=== PATIENT | female | born 1955 | race Caucasian/White ===

== ENCOUNTER 2024-08-24 14:55 | Emergency (ER) | payer MEDICARE, BC, SELFPAY ==
[2024-08-24 14:59] VITALS: BP 199/103
[2024-08-24 15:49] LABS: Hematocrit 45.8 % (37.0-47.0); Hemoglobin 15.0 g/dL (12.0-16.0); Mean Corp Hgb Conc. 32.8 g/dL (33.0-37.0); Mean Corpuscular Volume 89.5 fL (81.0-99.0); Nucleated Red Blood Cells % 0 %; Platelet Count 272 10^3/uL (130-400); Red Cell Dist. Width 15.0 % (11.5-14.5)
[2024-08-24 16:03] LABS: ALT (SGPT) 10 U/L (0-35); AST (SGOT) 19 U/L (14-36); Albumin 4.6 g/dl (3.5-5.0); Alkaline Phosphatase 65 U/L (38-126); Blood Urea Nitrogen 14 mg/dl (7-17); Calcium 9.2 mg/dl (8.4-10.2); Carbon Dioxide 26 mmol/L (22-30); Chloride 109 mmol/L (98-107); Glucose 93 mg/dl (70-99); Potassium 4.2 mmol/L (3.5-5.1); Sodium 141 mmol/L (135-145); Total Protein 8.2 g/dl (6.3-8.2); eGFR > 60.00
[2024-08-24 16:20] LABS: Urine Character Clear (Clear)
--- NOTE | 2024-08-24 16:54 | ED.GENMED ---
History of Present Illness
General
Chief Complaint: Urinary Symptoms
Source: patient
Exam Limitations: none
Time Seen by Provider: 08/24/24 16:25
History of Present Illness
History of Present Illness:
69yoF with a history of hypertension, obesity, GERD, and recurrent UTIs over the past year presenting for evaluation of UTI symptoms. Patient was last seen by her PCP on 08/18/2024 for UTI symptoms. She was started on a 5-day course of Ceftin which
she completed today. She reports no improvement in her symptoms after the antibiotic. She continues to have urinary frequency, urgency, and is now experiencing decreased urination. She also reports some bloating in her abdomen and some low back
pain. No fevers or vomiting. Patient is concerned because she has a family history of kidney failure. A urine culture was sent on 08/18/24 which grew out 25,000-50,000 colonies of MRDO E.Coli. Culture showed resistance to cefoxitin, cefpodoxime,
and ceftriaxone.
Past History
Past History
ED Past Medical History: Arrthythmia (SVT), GERD, HTN, Hypercholesterolemia and Other (DVT left leg June 2018 after orthopedic/ankle surgical procedure.)
ED Past Surgical History: Bowel resection (Colon resection for Diverticulitis and Pre CA growth), Cardiac (Ablation), Gynecological (Hysterectomy and one ovary removed) and Orthopedic (ORIF Fibula,)
Social History
Tobacco: Former smoker
Alcohol: None
Drug: None
Personal:
Living: with family
Family History
Family History: Other
Phy Exam
General Physical Exam
General Presentation: well appearing and no apparent distress
General Skin: warm and dry
General Habitus: normal
General Mental: alert
ENT Exam
ENT Exam: normocephalic
Pulmonary Exam
Pulmonary Exam: no respiratory distress
Gastrointestinal Exam
Gastrointestinal Exam: non tender, soft, non distended, no cva tenderness and other (Abdomen obese. Soft, non-distended. Palpable umbilical hernia that is non-tender without skin changes. No rebound or guarding. No CVA tenderness.)
Neurological Exam
Neurological Exam: alert
[place] Coma Scale
Eye Opening: Spontaneous
Verbal Response: Oriented
Motor Response: Obeys Commands
GCS Total Score: 15
Skin Exam
Skin Exam: normal color and warm/dry
Psychiatric Exam
Psychiatric Exam: normal mood/affect
Course
Orders/Labs/Results
Orders:
Orders
08/24/24 15:23
Complete Blood Count/With Diff Urgent
Comprehensive Metabolic Panel Urgent
Lactic Acid Urgent
Urinalysis Reflex To Culture Urgent
Date Specimen was Collected: 08/24/24
Time Specimen was Collected: 15:07
Urine Microscopic Reflex Cult Urgent
Urine Culture Urgent
CAMPOS Source: U
Specimen Description:
Date Specimen was Collected: 08/24/24
Time Specimen was Collected: 15:07
08/24/24 16:53
CT Abd/pelvis W Iv Cont Urgent
Comment:
Reason For Exam: lower abd pain, UTI symptoms
Bladder Scan- Treatment ONCE
0.9% Sodium Chloride 1000 ml [Nss] 1,000 ml IV BOLUS
Abnormal Lab Results
08/24/24
15:23
MCHC 32.8 L g/dL
(33.0-37.0)
RDW 15.0 H %
(11.5-14.5)
MPV 10.6 H fL
(7.4-10.4)
Chloride 109 H mmol/L
(98-107)
Ur Occult Blood Reflex 1+ A
(Negative)
Leukocyte Esterase Rfl 1+ A
(Negative)
Urine Bacteria (Reflex) Few A
(Negative)
Urine Albumin (Reflex) 2+ A
(Neg - Trace)
08/24/24 15:23
08/24/24 15:23
Vital Signs
Initial and Last Documented VS:
Initial Vital Signs
Temp Pulse Resp BP Pulse Ox
97.8 F 58 20 199/103 96
08/24/24 14:59 08/24/24 14:59 08/24/24 14:59 08/24/24 14:59 08/24/24 14:59
Last Documented Vital Signs
Temp Pulse Resp BP Pulse Ox
97.8 F 46 14 164/96 97
08/24/24 14:59 08/24/24 17:38 08/24/24 17:38 08/24/24 17:38 08/24/24 17:38
MDM/Problems Addressed
Differential Diagnosis Includes:
69yoF here with UTI symptoms. Just finished a 5 day course of Ceftin without improvement. Outpatient urine culture reviewed on patient's phone which grew out E.coli resistant to 2nd/3rd gen cephalosporins. Denies vomiting or fevers. She is
hypertensive with otherwise stable vitals. No CVA tenderness on exam. Differential diagnosis includes but is not limited to: UTI, pyelonephritis, urinary retention
Initial ED plan: Workup intiated in triage. White count, lactate, and renal function WNL. UA pending. Will check bladder scan and CT abdomen. IV fluid bolus.
*Pulse Oximetry
SaO2: 96
Oxygen Mode of Delivery: Room air
Patient hypoxic: no (96%)
*Critical Care Note
Total Time (30-74mins, 75-104mins- exclusive of procedures): Not Applicable
Update Note
Update Note:
Bladder scan 188cc, no indication for Chester catheter. UA with 1+ leukocytes and few bacteria. >30/LPF squamous epithelial cells present suggesting contaminated sample. CT shows a fat-containing ventral hernia with mild stranding although there is no
tenderness when hernia is palpated as well as no skin changes. Lung nodule noted that appears increased in size compared to prior CT in 2019. Patient informed of this and copy of the radiology report was provided. She has a remote smoking history
and was advised to f/u with her PCP regarding this. No imaging evidence of hydronephrosis or pyelonephritis. No indication for hospitalization. Urinalysis is not overtly concerning for infection although she continues to be symptomatic. Will
prescribe Macrobid which prior urine culture showed susceptibility to. Will refer to urology for recurrent UTIs. ED return precautions reviewed and patient discharged in stable condition.
ED Attending Note
-
Portions of this chart may have been created with voice recognition software.� Occasional wrong word or��sound alike� substitutions may have occurred due to the inherent limitations of voice recognition software.
Discharge Plan
Departure
Patient Disposition: Home (Routine Discharge)
Date of Disposition: 08/24/24
Time of Disposition: 19:03
Patient with high blood pressure during this ER visit?: Yes
Discharge Problem:
Urinary tract infection, Incidental lung nodule, greater than or equal to 8mm
Instructions: Urinary Tract Infection, Adult (DC)
Prescriptions:
New
nitrofurantoin monohyd/m-cryst [Macrobid] 100 mg capsule
100 mg PO Q12H 5 Days Qty: 10 0RF
No Action
omeprazole 40 MG capsule,delayed release(DR/EC)
40 mg PO DAILY Qty: 30 0RF
carvedilol 25 mg tablet
25 mg PO BID
hydrochlorothiazide 12.5 mg tablet
12.5 mg PO DAILY
hydralazine 50 mg tablet
50 mg PO TID
amlodipine 5 mg Tablet
5 mg PO BID Qty: 60 0RF
spironolactone 25 mg Tablet
12.5 mg PO DAILY Qty: 60 0RF
Referrals:
Jimy Morris MD [Active, Urology]
UNKNOWN - PT DOES,NOT KNOW [Unknown Provider]
Activity Restrictions/Additional Instructions:
Take antibiotics as prescribed. Drink plenty of fluids. Take probiotics or eat yogurt while on the antibiotic.
Please follow-up with urology. You should also follow-up with your family doctor regarding the lung nodule seen on today's CT scan.
Return to the ER with any worsening symptoms including fevers, vomiting, or flank pain.
Interventions
Interventions:
*Risk Screen - Suicide Last Done: 08/24/24 17:12
*General Assessment Last Done: 08/24/24 17:10
*Neglect/Abuse Screening Last Done: 08/24/24 17:12
*ED- Fall Risk Assessment Last Done: 08/24/24 17:10
*ED COVID-19 Vaccine History Last Done: 08/24/24 17:10
ED-Female Genitourinary Assessment Last Done: 08/24/24 17:30
Discharge Date and Time
Print Language: SLOVENIAN
[2024-08-24 17:10] VITALS: BMI 39.3
[2024-08-24 17:38] VITALS: BP 164/96
--- NOTE | 2024-08-24 17:41 | EDRN ---
Pt states she has pain in her bladder area, across lower abd and in her urethra at 7/10. Pt states she has needed to void frequently and only void small amnts like a tbspn.
[2024-08-24] MEDS: NSS 1000 IV (18:20)
[2024-08-24 18:26] LABS: Urine Red Blood Cell 0-2 /HPF (0-2); Urine Squamous Cell >30 /LPF (Few)
== END 2024-08-24 19:23 | disposition home or self-care (01) ==
LOC: EMR 14:55
PROVIDERS: Emergency Medicine; EMERGENCY PHYSICIAN Emergency Medicine; FAMILY PHYSICIAN Family Medicine
DX: N39.0 Urinary tract infection, site not specified (principal); R10.30 Lower abdominal pain, unspecified; R91.1 Solitary pulmonary nodule; E66.9 Obesity, unspecified; K43.9 Ventral hernia without obstruction or gangrene; K21.9 Gastro-esophageal reflux disease without esophagitis; E78.00 Pure hypercholesterolemia, unspecified; I10 Essential (primary) hypertension; I47.10 Supraventricular tachycardia, unspecified; K57.92 Diverticulitis of intestine, part unspecified, without perforation or abscess without bleeding; Z87.440 Personal history of urinary (tract) infections; Z86.718 Personal history of other venous thrombosis and embolism; Z87.891 Personal history of nicotine dependence; Z98.0 Intestinal bypass and anastomosis status; Z88.6 Allergy status to analgesic agent; Z91.040 Latex allergy status; Z88.5 Allergy status to narcotic agent; Z88.2 Allergy status to sulfonamides; Z91.048 Other nonmedicinal substance allergy status
CPT/HCPCS: 99285; 51798; 96360; 74177; 80053; 81003; 81015; 83605; 85025; 87086; Q9967

== ENCOUNTER 2024-09-15 19:40 | Emergency (ER) | payer MEDICARE, BC, SELFPAY ==
[2024-09-15 19:45] VITALS: BP 213/108
[2024-09-15 20:27] LABS: ALT (SGPT) < 10 U/L (0-35); AST (SGOT) 17 U/L (14-36); Albumin 4.1 g/dl (3.5-5.0); Alkaline Phosphatase 57 U/L (38-126); Blood Urea Nitrogen 15 mg/dl (7-17); Calcium 9.2 mg/dl (8.4-10.2); Carbon Dioxide 23 mmol/L (22-30); Chloride 111 mmol/L (98-107); Glucose 119 mg/dl (70-99); Potassium 3.8 mmol/L (3.5-5.1); Sodium 140 mmol/L (135-145); Total Protein 7.3 g/dl (6.3-8.2); eGFR > 60.00
[2024-09-15 20:37] VITALS: BMI 40.6
[2024-09-15 20:46] VITALS: BP 187/91
[2024-09-15 21:07] LABS: Hematocrit 42.8 % (37.0-47.0); Hemoglobin 14.1 g/dL (12.0-16.0); Mean Corp Hgb Conc. 32.9 g/dL (33.0-37.0); Mean Corpuscular Volume 87.7 fL (81.0-99.0); Nucleated Red Blood Cells % 0 %; Platelet Count 198 10^3/uL (130-400); Red Cell Dist. Width 15.3 % (11.5-14.5)
[2024-09-15 21:29] VITALS: BP 176/82
[2024-09-15] MEDS: TYLENOL 650 MG PO (21:52)
[2024-09-15] MEDS: APRESOLINE 10 MG IV (21:53)
[2024-09-15 22:34] VITALS: BP 160/86
[2024-09-15 23:00] VITALS: BP 171/88
--- NOTE | 2024-09-15 23:16 | ED.GENMED ---
History of Present Illness
General
Chief Complaint: Blood Pressure Problem
Source: patient and records
Exam Limitations: none
Time Seen by Provider: 09/15/24 21:45
Nursing documentation reviewed up to this point in time: agreed with
History of Present Illness
History of Present Illness:
69-year-old female with a past medical history as noted presents to the ER for evaluation of hypertension. Patient reports that she has a history of difficulty control blood pressure particular in the past few months. Her current blood pressure
medication regiment includes: Carvedilol 25 mg p.o. twice daily, valsartan 80 mg p.o. daily. She has been prescribed amlodipine 5 mg and her resident care coordinator recommended that she take this on an as-needed basis if her blood pressures are running high.
She previously had been on hydralazine standing 25 mg daily but this was discontinued due to issues with low blood pressure and dizziness.
She presents to the ED today for high blood pressure�she says that over the past 48 hours blood pressures have been running quite high she says with readings over 200 at home. She says that today she took the amlodipine in the morning in addition
to her normal dose of carvedilol. Rechecked her blood pressure later and it was still high and she started to notice she was having heaviness in her chest, mild shortness of breath as well as some headache and decided she should come to the ER to
be evaluated. Symptoms resolved shortly after arrival in the emergency room. She denies any other acute complaints. She is scheduled to see her resident care coordinator in 2 weeks ([address] Swanson) for routine follow-up. She does note that she has been under
some increased stress recently, has been dealing with urinary symptoms and UTIs recently finished a course of Macrobid. She is following with urology for this issue.
Past History
Past History
ED Past Medical History: Arrthythmia (SVT), GERD, HTN, Hypercholesterolemia and Other (DVT left leg June 2018 after orthopedic/ankle surgical procedure.)
ED Past Surgical History: Bowel resection (Colon resection for Diverticulitis and Pre CA growth), Cardiac (Ablation), Gynecological (Hysterectomy and one ovary removed) and Orthopedic (ORIF Fibula,)
Social History
Tobacco: Former smoker
Alcohol: None
Drug: None
Personal:
Living: with family
Family History
Family History: Other
Review of Systems
Review of Systems
All Other Systems: ROS reviewed and negative except as documented in HPI and ROS
Respiratory: Denies trouble breathing
Cardiac: Reports chest pain
ABD/GI: Denies abdominal pain, nausea or vomiting
: Denies flank pain
Musculoskeletal: Denies neck pain or back pain
Neurological: Reports dizzy and headache
Phy Exam
Physical Exam
Physical Exam:
General: Awake, alert, oriented x3; no acute distress
Head: Normocephalic, atraumatic
Eyes: Conjunctiva normal, EOMI, pupils equal round reactive to light bilaterally
Throat: Airway intact, handling secretions
Neck: Trachea midline, supple without meningismus
Lungs: Clear to auscultation bilaterally, no wheezing, rales, rhonchi
Heart: Regular rate and rhythm, no murmurs, gallops, or rubs
Abd: Soft, non distended, nontender
Neuro: Cranial nerves grossly intact, speech fluid, no gross motor or sensory deficits
Extremities: No edema in extremities, equal pulses in all extremities
Scores
Heart Failure Risk
Heart Failure Risk Score: Not Applicable
Heart Score for Chest Pain Patients
STEMI patient?: Not applicable
Withdrawal Assessment of Alcohol
Withdrawal Assessment Completed?: Not applicable
Course
Orders/Labs/Results
Orders:
Orders
09/15/24 19:43
EKG [Electrocardiogram (*1)] Urgent
Reason for Study: Shortness of Breath
EKG- Treatment ONCE
Chest [CR Chest - 2 Views ] Urgent
Comment:
Reason For Exam: SOB
09/15/24 19:56
CMP [Comprehensive Metabolic Panel] Urgent
Pro-BNP [NT-proBNP] Urgent
09/15/24 20:54
Complete Blood Count/With Diff Urgent
09/15/24 21:47
Add On- LAB Urgent
Tests Added?: troponin
09/15/24 21:48
Acetaminophen [Tylenol] 650 mg PO NOW STA
HydrALAZINE [Apresoline] 10 mg IV NOW STA
09/15/24 22:52
Troponin I Urgent
Abnormal Lab Results
09/15/24 09/15/24
19:56 20:54
MCHC 32.9 L g/dL
(33.0-37.0)
RDW 15.3 H %
(11.5-14.5)
Chloride 111 H mmol/L
(98-107)
Glucose 119 H mg/dl
(70-99)
09/15/24 20:54
09/15/24 19:56
Vital Signs
Initial and Last Documented VS:
Initial Vital Signs
Temp Pulse Resp BP Pulse Ox
36.8 C 54 19 213/108 97
09/15/24 19:45 09/15/24 19:45 09/15/24 19:45 09/15/24 19:45 09/15/24 19:45
Last Documented Vital Signs
Temp Pulse Resp BP Pulse Ox
36.8 C 54 15 160/86 97
09/15/24 19:45 09/15/24 22:34 09/15/24 22:34 09/15/24 22:34 09/15/24 23:24
MDM/Problems Addressed
Differential Diagnosis Includes:
Hypertension
MDM/Problems Addressed:
69-year-old female presents for evaluation of hypertension uncontrolled over the past few days. She did have some transient chest pain/headache today which has resolved. Blood pressure was 213/108 on arrival. Improved but still markedly elevated
by my assessment. EKG shows no STEMI. Labs sent off including a CBC and a CMP which showed no clinically significant abnormalities. Troponin undetectable. Chest x-ray shows no acute disease. She was given a dose of IV hydralazine here with
improvement in blood pressure. Had a long discussion with the patient about treatment options. Will plan to restart amlodipine as a standing dose and reinstate use of hydralazine on an as-needed basis. Going forward her regiment will be to take
carvedilol twice daily, amlodipine once daily, valsartan once daily; hydralazine to be used daily as needed. She will follow-up with her resident care coordinator and keep a diary of her blood pressures in the meantime. Return with any concerning symptoms.
She feels very comfortable to this plan. All questions answered.
Chronic conditions affecting care:
Hypertension
Acute Exacerbation and/or Progression of Chronic Illness:
Acutely hypertensive
Acute Exacerbation and/or Progression of Chronic Illness: HTN
*Radiology
Radiology exam reviewed: preliminary read by ED provider and radiology read reviewed
*Pulse Oximetry
SaO2: 97
Oxygen Mode of Delivery: Room air
Patient hypoxic: no (97%)
*EKG
Interpreted by ED Provider?: Yes
Comparison EKG: no changes
Heart Rate: 58
Rate: bradycardiac
Rhythm: sinus
[place]: normal axis
Interval: normal interval
QRS Pattern: normal QRS
Ischemia: no ischemia
*Critical Care Note
Total Time (30-74mins, 75-104mins- exclusive of procedures): Not Applicable
Data Reviewed
Review of Other/Old Records Reveals: Labs and Records
Source: patient, records and family
ED Attending Note
-
Portions of this chart may have been created with voice recognition software.� Occasional wrong word or��sound alike� substitutions may have occurred due to the inherent limitations of voice recognition software.
Discharge Plan
Departure
Patient Disposition: Home (Routine Discharge)
Date of Disposition: 09/15/24
Time of Disposition: 23:24
Patient with high blood pressure during this ER visit?: Yes
Discharge Problem:
Hypertension, Chest pain
Instructions: High Blood Pressure (DC), Chest pain
Prescriptions:
No Action
omeprazole 40 MG capsule,delayed release(DR/EC)
40 mg PO DAILY Qty: 30 0RF
carvedilol 25 mg tablet
25 mg PO BID
hydrochlorothiazide 12.5 mg tablet
12.5 mg PO DAILY
Patient Comments:
Pt states med on hold per MD at this time
hydralazine 50 mg tablet
50 mg PO TID
Patient Comments:
Pt states med on hold per MD at this time
topiramate 25 mg Tablet
25 mg PO DAILY
fexofenadine [[place]be Allergy] 180 mg Tablet
180 mg PO DAILY
amlodipine 5 mg tablet
5 mg PO DAILY PRN (Reason: Blood pressure)
spironolactone 25 mg tablet
12.5 mg PO Q48H
Referrals:
Jonathan Swanson MD [Non-Admitting Privileges, Cardiology] - Keep scheduled appt
Earl Wen MD [Family Provider, Family Practice]
Activity Restrictions/Additional Instructions:
Thank you for visiting the Emergency Department at [facility].
1. Please schedule a follow up appointment as directed. Call first thing tomorrow morning to make an appointment.
2. If indicated, please take your medications as instructed and indicated on discharge paperwork.
3. If any of your symptoms do not improve, or persist, or become more severe within 6-12 hours, please return to the emergency department for further care.
4. Please return to the emergency department if you develop a headache, neck pain/stiffness, fever greater than 100.4F, chest pain, shortness of breath, persistent nausea, vomiting, slurred speech, difficulty walking, numbness/tingling, weakness,
signs of infection or any other symptoms that are worrisome to you.
Please call [phone] if you have any questions.
Interventions
Interventions:
*Risk Screen - Suicide Last Done: 09/15/24 19:45
*General Assessment Last Done: 09/15/24 19:45
*Neglect/Abuse Screening Last Done: 09/15/24 19:45
*ED- Fall Risk Assessment Last Done: 09/15/24 20:37
*ED COVID-19 Vaccine History Last Done: 09/15/24 20:37
ED- Cardiac Assessment Last Done: 09/15/24 20:46
ED- Neurological Assessment Last Done: 09/15/24 20:46
ED- Pulmonary Assessment Last Done: 09/15/24 20:46
Discharge Date and Time
Print Language: COMORAN
[2024-09-15 23:21] LABS: Troponin I < 0.012 ng/ml
[2024-09-15 23:42] VITALS: BP 165/77
== END 2024-09-16 00:06 | disposition home or self-care (01) ==
LOC: EMR 19:40
PROVIDERS: Emergency Medicine; EMERGENCY PHYSICIAN Emergency Medicine; FAMILY PHYSICIAN Family Medicine
DX: I10 Essential (primary) hypertension (principal); R07.89 Other chest pain; R42 Dizziness and giddiness; R06.02 Shortness of breath; R51.9 Headache, unspecified; Z73.3 Stress, not elsewhere classified; K21.9 Gastro-esophageal reflux disease without esophagitis; E78.00 Pure hypercholesterolemia, unspecified; I47.10 Supraventricular tachycardia, unspecified; M19.90 Unspecified osteoarthritis, unspecified site; Z79.899 Other long term (current) drug therapy; Z86.718 Personal history of other venous thrombosis and embolism; Z87.891 Personal history of nicotine dependence; Z98.0 Intestinal bypass and anastomosis status; Z88.6 Allergy status to analgesic agent; Z91.040 Latex allergy status; Z88.5 Allergy status to narcotic agent; Z88.2 Allergy status to sulfonamides; Z91.048 Other nonmedicinal substance allergy status
CPT/HCPCS: 99285; 96374; 71046; 80053; 83880; 84484; 85025; 93005

== ENCOUNTER → 2024-11-25 07:54 | Outpatient (REF) | payer MEDICARE, BC, SELFPAY | LOC: HWRAD 07:54 | PROVIDERS: ATTENDING PHYSICIAN Internal Medicine Critical Care Medicine; FAMILY PHYSICIAN Family Medicine | DX: R91.1 Solitary pulmonary nodule (principal) | CPT/HCPCS: 71250 ==

== ENCOUNTER 2024-12-12 19:26 | Inpatient (IN) | payer MEDICARE, BC, SELFPAY ==
[2024-12-12] VITALS (9 sets, daily range): BP systolic 135–211; BP diastolic 74–114; BMI 39.2
[2024-12-12 15:56] LABS: Hematocrit 44.8 % (37.0-47.0); Hemoglobin 14.6 g/dL (12.0-16.0); Mean Corp Hgb Conc. 32.6 g/dL (33.0-37.0); Mean Corpuscular Volume 90.0 fL (81.0-99.0); Nucleated Red Blood Cells % 0 %; Platelet Count 272 10^3/uL (130-400); Red Cell Dist. Width 15.3 % (11.5-14.5)
--- NOTE | 2024-12-12 15:58 | ED.CVA ---
History of Present Illness
<Tyra Armenta MD, Resident - Last Filed: 12/13/24 01:11 EDT>
General
Chief Complaint: CVA/TIA Symptoms
Source: patient
Time Seen by Provider: 12/12/24 15:08
Onset of Stroke Symptoms
Onset of symptoms known: Yes
Date of onset of symptoms: 12/12/24
Time of onset of symptoms: 09:00
Time pt last seen normal is known: No
History of Present Illness
History of Present Illness:
69-year-old female with past medical history of known ocular migraines, pulmonary nodules, HTN, non-obstructive CAD, provoked DVT presents to the ER for headache for the last 3 weeks with new onset expressive aphasia this morning. She has had
ocular migraines for the past 3 weeks associated with occasional blurry vision, floaters, flashing lights. She has been stressed and attributes it to that. 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
could not express herself. She knew what she wanted to say but was unable to say the correct words. When she was trying to write something down, she knew what she wanted to write but she wrote down the wrong thing. She did not think much of it
and continued on her day.
At around 10:30 she went to the bank where she noted she was unable to express herself with the staff there either. They told her she should go see a doctor. She went to [facility] urgent care and they recommended for her to come to the ER. At the
urgent care, she was starting to be able to express herself better. By the time she got to the ER, her speech returned to normal and only the ongoing headache with visual changes remained. She is not on any blood thinners or anti-platelets. She did
take her BP medication this morning. She denies any facial droop, weakness, numbness or tingling. She does endorse some nausea when she moves her eyes too quickly and feels like there is pressure behind her ears. Her sister does have a history of
multiple brain aneurysms requiring multiple surgeries.
Of note, she is getting worked up for pulmonary nodules with Dr. Em and she stated she is planning on seeing him this saturday to discuss an enlarging one seen on recent imaging.
Past History
<Tyra Armenta MD, Resident - Last Filed: 12/13/24 01:11 EDT>
Past History
ED Past Medical History: Arrthythmia (SVT), GERD, HTN, Hypercholesterolemia, Other (DVT left leg June 2018 after orthopedic/ankle surgical procedure.), Other (Pulmonary nodules) and Other (CAD)
ED Past Surgical History: Bowel resection (Colon resection for Diverticulitis and Pre CA growth), Cardiac (Ablation), Gynecological (Hysterectomy and one ovary removed) and Orthopedic (ORIF Fibula,)
Social History
Tobacco: Former smoker (Quite 20 years ago. Started age 19 1/2 pack per day. )
Alcohol: None
Drug: None
Personal:
Living: with family
Employment: Employed
Family History
Family History: Other (Sister brain aneurysms )
Review of Systems
<Tyra Armenta MD, Resident - Last Filed: 12/13/24 01:11 EDT>
Review of Systems
Allergies reviewed?: Yes
Constitutional: Reports no symptoms
EENT: Reports no symptoms
Respiratory: Reports no symptoms
Cardiac: Reports no symptoms
ABD/GI: Reports nausea
: Reports no symptoms
Musculoskeletal: Reports neck pain
Neurological: Reports headache
Endocrine: Reports no symptoms
Phy Exam
<Tyra Armenta MD, Resident - Last Filed: 12/13/24 01:11 EDT>
Physical Exam
Physical Exam:
General: Well appearing
Head: Atraumatic
Neck: supple, non-tender
Eyes: PERRLA
Cardiac: Regular S1, S2, no murmurs
Respiratory: Clear breath sounds bilaterally
Abdomen: non-tender, non-distended, normal BSx4, Soft
Neurological: CNII-XII intact, NIH 0, Left eye noted to have some central loss of vision. When reading sentences, unable to see a few words in between other words.
Extremities: No peripheral edema
Psych: calm
NIH Stroke Score
Level of Consciousness: 0 - Alert
LOC questions: 0-Answers both correctly
LOC Commands: 0-Performs both correctly
Best Gaze: 0-Normal
Visual Jones: 0=Normal, no visual loss
Facial palsy: 0=Normal, symmetrical
Motor - Right Arm: 0=No drift 10 seconds
Motor - Left Arm: 0=No drift 10 seconds
Motor - Right Le-No drift 5 seconds
Motor - Left Le-No drift 5 seconds
Limb Ataxia: 0-Absent
Sensation: 0-Normal
Best Language: 0-No aphasia
Dysarthria: 0-Normal
Extinction and Inattention: 0-No abnormality
Total Score:: 0
<Hernandez Clay, DO - Last Filed: 12/12/24 16:29>
NIH Stroke Score
Total Score:: 0
Course
<Tyra Armenta MD, Resident - Last Filed: 12/13/24 01:11 EDT>
Orders/Labs/Results
Orders:
Orders
12/12/24 Dinner
Regular
At Your Request: Full Participation
Does patient need a safe tray?: No
12/12/24 15:10
Electrocardiogram (*1) Stat
Reason for Study: Other
Other Reason for Exam: neuro symptoms
CT Head & Neck Angio W/wo IV Urgent
Comment:
Reason For Exam: aphasia, headache, visual change
CT Head W/o Iv Contrast Urgent
Comment:
Reason For Exam: aphasia, headache, visual change
Bedside Glucose- Treatment ONCE
Cardiac Monitoring- Treatment ONCE
EKG- Treatment ONCE
Pulse Ox/cont/shift [RESP] Stat
Quantity: 1
12/12/24 15:37
Basic Metabolic Panel Urgent
Complete Blood Count/With Diff Urgent
NT-proBNP Urgent
Comment: ADD ON
PTT Urgent
Prothrombin Time Urgent
Troponin I Urgent
12/12/24 15:50
CT Brain Perfusion Urgent
Comment:
Reason For Exam: aphasia
12/12/24 18:35
Aspirin 325 mg PO NOW STA
12/12/24 18:57
Acetaminophen [Tylenol] 1,000 mg PO NOW STA
12/12/24 19:10
Admit/Transfer Patient As Directed
Co-Sign Provider:
Level of Care: Inpatient admission
Assign to:: Telemetry
Physician / Group: radha
Diagnosis: ocular migraine
Reason for Telemetry: Arrhythmia
Date to Stop Telemetry: 12/15/24
Time to Stop Telemetry: 11:00
Reason for Hospitalization: ocular migraine
Expected length of stay greater than two midnights?: Yes
ELOS- Estimated Length of Stay in days: 2
I certify the patient meets the requirements for IP care: Yes
Code Status As Directed
Resuscitation Status: Full Code
PRN Pain Medication Management As Directed
May give lesser potent ordered pain med per pt: Yes
preference::
Protocol:: Medication orders for pain may be administered in a
manner that supports deferring to patient preference
when the pt is:
- Requesting an ordered lesser potent pain medication.
Least to most potent pain medications are defined
as: acetaminophen < NSAID < tramadol < opioids
(morphine, oxycodone, hydromorphone).
- Requesting a lesser dose of the same medication IF
ORDERED.
- Requesting a less intrusive route of administration
if both routes are prescribed by the provider (PO <
IV).
12/12/24 19:12
Diphenhydramine [Benadryl] 25 mg IV NOW STA
Ketorolac [Toradol] 15 mg IV NOW STA
Ketorolac [Toradol] 15 mg IV Q6HPRN PRN
Prochlorperazine [Compazine] 10 mg IV Q6HPRN PRN
12/12/24 21:33
Carvedilol [Coreg] 25 mg PO BID
Spironolactone [Aldactone] 25 mg PO Q48H
topiramate 50 mg PO BID
12/12/24 21:33
MRI Brain [MR Brain Without Contrast] Routine
Comment:
Reason For Exam: expressive apahasia, migraine
Recent pill cam endoscopy?: No
Activity As Directed
Activity Level: As Tolerated
Pneumatic Compression Sleeves As Directed
Type: Knee high
Vital Signs As Directed
Frequency: Per unit guidelines
DX Deep Vein Thrombosis Video Routine
12/13/24 06:00
Complete Blood Count/With Diff IN AM
Comprehensive Metabolic Panel IN AM
12/13/24 08:00
Aspirin Low Dose EC [Aspir Low (Enteric Coated)] 81 mg PO DAILY
fexofenadine [Phoebe Allergy] 180 mg PO DAILY
omeprazole 40 mg PO DAILY
12/13/24 18:00
Escitalopram Oxalate [Lexapro] 10 mg PO QPM
Valsartan [Diovan] 80 mg PO QPM
12/15/24 11:00
DC Protocol for Telemetry ONCE
Abnormal Lab Results
12/12/24
15:37
MCHC 32.6 L g/dL
(33.0-37.0)
RDW 15.3 H %
(11.5-14.5)
MPV 10.7 H fL
(7.4-10.4)
Chloride 108 H mmol/L
(98-107)
12/12/24 15:37
12/12/24 15:37
Vital Signs
Initial and Last Documented VS:
Initial Vital Signs
Temp Pulse Resp BP Pulse Ox
98.4 F 59 16 211/102 98
12/12/24 14:11 12/12/24 14:11 12/12/24 14:11 12/12/24 14:11 12/12/24 14:11
Last Documented Vital Signs
Temp Pulse Resp BP Pulse Ox
97.7 F 49 18 135/83 97
12/12/24 23:00 12/12/24 23:00 12/12/24 23:00 12/12/24 23:00 12/12/24 23:00
<Hernandez Clay, DO - Last Filed: 12/12/24 16:29>
Orders/Labs/Results
Orders:
Orders
12/12/24 Dinner
Regular
At Your Request: Full Participation
Does patient need a safe tray?: No
12/12/24 15:10
Electrocardiogram (*1) Stat
Reason for Study: Other
Other Reason for Exam: neuro symptoms
CT Head & Neck Angio W/wo IV Urgent
Comment:
Reason For Exam: aphasia, headache, visual change
CT Head W/o Iv Contrast Urgent
Comment:
Reason For Exam: aphasia, headache, visual change
Bedside Glucose- Treatment ONCE
Cardiac Monitoring- Treatment ONCE
EKG- Treatment ONCE
Pulse Ox/cont/shift [RESP] Stat
Quantity: 1
12/12/24 15:37
Basic Metabolic Panel Urgent
Complete Blood Count/With Diff Urgent
NT-proBNP Urgent
Comment: ADD ON
PTT Urgent
Prothrombin Time Urgent
Troponin I Urgent
12/12/24 15:50
CT Brain Perfusion Urgent
Comment:
Reason For Exam: aphasia
12/12/24 18:35
Aspirin 325 mg PO NOW STA
12/12/24 18:57
Acetaminophen [Tylenol] 1,000 mg PO NOW STA
12/12/24 19:10
Admit/Transfer Patient As Directed
Co-Sign Provider:
Level of Care: Inpatient admission
Assign to:: Telemetry
Physician / Group: radha
Diagnosis: ocular migraine
Reason for Telemetry: Arrhythmia
Date to Stop Telemetry: 12/15/24
Time to Stop Telemetry: 11:00
Reason for Hospitalization: ocular migraine
Expected length of stay greater than two midnights?: Yes
ELOS- Estimated Length of Stay in days: 2
I certify the patient meets the requirements for IP care: Yes
Code Status As Directed
Resuscitation Status: Full Code
PRN Pain Medication Management As Directed
May give lesser potent ordered pain med per pt: Yes
preference::
Protocol:: Medication orders for pain may be administered in a
manner that supports deferring to patient preference
when the pt is:
- Requesting an ordered lesser potent pain medication.
Least to most potent pain medications are defined
as: acetaminophen < NSAID < tramadol < opioids
(morphine, oxycodone, hydromorphone).
- Requesting a lesser dose of the same medication IF
ORDERED.
- Requesting a less intrusive route of administration
if both routes are prescribed by the provider (PO <
IV).
12/12/24 19:12
Diphenhydramine [Benadryl] 25 mg IV NOW STA
Ketorolac [Toradol] 15 mg IV NOW STA
Ketorolac [Toradol] 15 mg IV Q6HPRN PRN
Prochlorperazine [Compazine] 10 mg IV Q6HPRN PRN
12/12/24 21:33
Carvedilol [Coreg] 25 mg PO BID
Spironolactone [Aldactone] 25 mg PO Q48H
topiramate 50 mg PO BID
12/12/24 21:33
MRI Brain [MR Brain Without Contrast] Routine
Comment:
Reason For Exam: expressive apahasia, migraine
Recent pill cam endoscopy?: No
Activity As Directed
Activity Level: As Tolerated
Pneumatic Compression Sleeves As Directed
Type: Knee high
Vital Signs As Directed
Frequency: Per unit guidelines
DX Deep Vein Thrombosis Video Routine
12/13/24 06:00
Complete Blood Count/With Diff IN AM
Comprehensive Metabolic Panel IN AM
12/13/24 08:00
Aspirin Low Dose EC [Aspir Low (Enteric Coated)] 81 mg PO DAILY
fexofenadine [Phoebe Allergy] 180 mg PO DAILY
omeprazole 40 mg PO DAILY
12/13/24 18:00
Escitalopram Oxalate [Lexapro] 10 mg PO QPM
Valsartan [Diovan] 80 mg PO QPM
12/15/24 11:00
DC Protocol for Telemetry ONCE
Abnormal Lab Results
12/12/24
15:37
MCHC 32.6 L g/dL
(33.0-37.0)
RDW 15.3 H %
(11.5-14.5)
MPV 10.7 H fL
(7.4-10.4)
Chloride 108 H mmol/L
(98-107)
12/12/24 15:37
12/12/24 15:37
Vital Signs
Initial and Last Documented VS:
Initial Vital Signs
Temp Pulse Resp BP Pulse Ox
98.4 F 59 16 211/102 98
12/12/24 14:11 12/12/24 14:11 12/12/24 14:11 12/12/24 14:11 12/12/24 14:11
Last Documented Vital Signs
Temp Pulse Resp BP Pulse Ox
97.7 F 49 18 135/83 97
12/12/24 23:00 12/12/24 23:00 12/12/24 23:00 12/12/24 23:00 12/12/24 23:00
<Tyra Armenta MD, Resident - Last Filed: 12/13/24 01:11 EDT>
MDM/Problems Addressed
Differential Diagnosis Includes:
CVA, TIA, ocular migraine, migraine, aneurysm, central venous sinus thrombosis, MS,
MDM/Problems Addressed:
CBC, CMP, CTA to evaluate for stroke. Will provide loading dose of aspirin and if no hemorrhages found. Outside of TNK window with symptoms first starting 9:00am. Will likely keep for observation overnight regardless given BP elevated 211/102.
Permissive HTN in setting of acute stroke.
Head CT revealed no intracranial bleed. She was provided loading dose of aspirin. Head CTA revealed an apparent small outpouching measuring approximately 2 mm along the mid extracranial right ICA which may resent a small aneurysm. In addition a 1
cm soft tissue nodule within the right parotid gland. Recommendation is for further imaging as differentials include parotid lymph node versus parotid neoplasm such as a pleomorphic adenoma. Patient was updated on results. Given sister has had
significant history with brain aneurysms, patient is concerned. She also plans to follow-up outpatient for parotid gland nodule.
Will admit for observation.
Chronic conditions affecting care: HTN
<Tyra Armenta MD, Resident - Last Filed: 12/13/24 01:11 EDT>
*Pulse Oximetry
SaO2: 98
Oxygen Mode of Delivery: Room air
Patient hypoxic: no
*Critical Care Note
Total Time (30-74mins, 75-104mins- exclusive of procedures): Not Applicable
Data Reviewed
Review of Other/Old Records Reveals: Labs (Prior creatinine 0.7 on 09/15/2024) and Radiology Studies (Chest CT 11/25/2024 revealed 0.85 cm right lower lobe pulmonary nodule stable send recent abdominal CT )
Source: patient and records
<Hernandez Clay DO - Last Filed: 12/12/24 16:29>
*EKG
Interpreted by ED Provider?: Yes (I independently viewed and interpreted twelve-lead EKG showing sinus bradycardia, rate 52, normal axis, normal intervals, this is a normal tracing other than right, similar to prior from 09/15/2024)
*[employer] Interpretation
Rate: normal (I independently viewed and interpreted rhythm strip showing sinus bradycardia, no ectopy)
ED Attending Note
<Tyra Armenta MD, Resident - Last Filed: 12/13/24 01:11 EDT>
-
Portions of this chart may have been created with voice recognition software.� Occasional wrong word or��sound alike� substitutions may have occurred due to the inherent limitations of voice recognition software.
<Hernandez Clay DO - Last Filed: 12/12/24 16:29>
ED Attending Note
Patient seen and examined by attending physician: Yes
I performed the substantive portion of visit, reviewed & personally made and approve the management plan that is documented in note by myself or JOYCE.: Yes
I performed a history and physical exam of patient and discussed management with resident, I reviewed resident's note and agree with documented findings and plan of care.: Yes
ED Attending Note:
61-year-old female presents to the ER for evaluation of visual disturbance with some word finding difficulty earlier today. Patient states that she has been struggling with ocular migraine with intermittent headache over the last several weeks.
She states that she frequently has a visual disturbance which she describes as white flashes in her left peripheral vision. This has been intermittent and ongoing over the last several days. Today while at work she was having a difficult time
conversing with a customer. She also was having difficulty writing what she was trying to say. She went to urgent care who referred her to the ER for further evaluation. She reports that she is feeling much improved. No recent change in her
medications, she is been taking all of her antihypertensives as prescribed. She does have a prior history of ocular migraines with a similar visual disturbance. She has never had any word finding difficulty. She denies headache at time of my
interview. Vital signs reviewed, patient is awake, alert, appears in no acute distress, mucous membranes moist, conjunctiva pink, no nystagmus, PERRL, EOMI, tongue is midline, no facial asymmetry noted, no dysdiadochokinesia, no ataxia, no pronator
drift, GCS is 15, heart regular rate and rhythm without murmurs or ectopy, no carotid bruits, lungs are clear to auscultation without wheezes rales or rhonchi, no peripheral edema, 2+ DP pulses present symmetric bilateral feet. NIH stroke scale is
0. She would not be a candidate for TNK based on resolution of her symptoms and presentation greater than 3 hours after onset. However, given her symptoms along with blood pressure elevation and age greater than 50, will obtain CT angio to assess
for possible stroke. CT perfusion also added given symptoms have been present for less than 24 hours.
Discharge Plan
Departure
Patient Disposition: Admit
Date of Disposition: 12/12/24
Time of Disposition: 18:53
Presentation/result/management discussed w/ accepting MD/DO: Hospitalist
Discharge Problem:
TIA (transient ischemic attack)
Interventions
Interventions:
*Risk Screen - Suicide Last Done: 12/12/24 21:40
*General Assessment Last Done: 12/12/24 14:11
*Neglect/Abuse Screening Last Done: 12/12/24 16:25
*ED- Fall Risk Assessment Last Done: 12/12/24 14:11
*ED COVID-19 Vaccine History Last Done: 12/12/24 21:40
*ED Influenza Vaccine History Last Done: 12/12/24 14:11
*Nursing Disposition Last Done: 12/12/24 21:06
ED- Pulmonary Assessment Last Done: 12/12/24 19:34
ED- Neurological Assessment Last Done: 12/12/24 19:24
ED- Cardiac Assessment Last Done: 12/12/24 19:34
ED Swallowing Screen Last Done: 12/12/24 16:24
Discharge Date and Time
Discharge Date/Time: 12/12/24 21:06
[2024-12-12 16:05] LABS: INR 1.05; PT 14.1 Sec (11.4-14.6)
[2024-12-12 16:06] LABS: APTT 26.7 Sec (23.4-35.0)
[2024-12-12 16:10] LABS: Blood Urea Nitrogen 17 mg/dl (7-17); Calcium 9.2 mg/dl (8.4-10.2); Carbon Dioxide 23 mmol/L (22-30); Chloride 108 mmol/L (98-107); Glucose 78 mg/dl (70-99); Sodium 137 mmol/L (135-145); eGFR > 60.00
[2024-12-12 16:21] LABS: Troponin I < 0.012 ng/ml
[2024-12-12] MEDS: ASPIRIN 325 MG PO (18:47)
--- NOTE | 2024-12-12 19:14 | HPS.HSE ---
Family Physician
-
Family Physician: Earl Wen MD
Chief Complaint
-
headache
History of Present Illness
69-year-old female past medical history of ocular migraines, pulmonary nodules, hypertension, nonobstructive CAD, provoked DVT, presenting for headache expressive aphasia. She presented with headache for the past 3 weeks with new onset of
expressive aphasia this morning. She has had constant ocular migraine for the past 3 weeks associate with occasional blurry vision, floaters, flashing lights, pain behind the eyes, sensitivity to light and nausea. She has been stressed and
attributed headaches to stress. She was on migraine medication years ago but does not remember what the medication was.
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 She knew what she wanted to say but could not say the correct words. While she was trying to write something down she knew what to write but wrote
the wrong thing. At 10:30 AM he went to the [employer] and was unable to express herself to the staff there. She was told to seek medical care. She went to urgent care and was told to come to the emergency room. In urgent care she was starting to
speak better. By time she got to emergency room her speech returned to normal and only has ongoing headache with visual changes. She does not take any blood thinners or antiplatelet medications. She did take her blood pressure medication this
morning.
Denies any facial droop, weakness, numbness or tingling. She does have some nausea when she moves her eyes too quickly and feels like there is pressure behind the eyes.
Her sister had history of multiple brain aneurysms requiring multiple surgeries.
She is getting worked up for material reclaimer with Dr. Samuel and she is planning to see him this Saturday to discuss enlarged pulmonary nodule.
She is a former smoker. She drinks alcohol occasionally.
Medical History
Past Medical History
Past Medical History: Reports Other (ocular migraines, pulmonary nodules, hypertension, nonobstructive CAD, provoked DVT,)
Past Surgical History: Reports Other (colectomy, hysterectomy, ankle surgery, hip replacement )
Social History
Tobacco: Former Smoker
Alcohol: Occasional
Drug: None
Family History
Family History: Not pertinent
Allergies / Home Medications
Allergies reflects when Allergies were last updated in [facility].
Home Medications with original date entered in [facility]
Allergy/Medication List:
Allergies
Allergy/AdvReac Type Severity Reaction Status Date / Time
adhesive Allergy Rash Verified 08/24/24 15:06
codeine Allergy Itching Verified 08/24/24 15:06
AND NAUSEA
hydromorphone (From Dilaudid) Allergy Anaphylaxis Verified 08/24/24 15:06
latex Allergy MOUTH Verified 08/24/24 15:06
SORES/swelling
Sulfa (Sulfonamide Allergy ITCHING Verified 08/24/24 15:06
Antibiotics) AND
SWELLING
OF EARS,
LIPS AND
FINGERS
tramadol Allergy cold sweats Verified 08/24/24 15:06
ACRYLIC Allergy swelling,it Uncoded 08/24/24 15:06
elliot
Home Medications
omeprazole 40 mg capsule,delayed release 40 mg PO DAILY ##30 11/27/16
carvedilol 25 mg tablet 25 mg PO BID Blood Pressure 10/07/22
fexofenadine 180 mg tablet (Phoebe Allergy) 180 mg PO DAILY 09/15/24
spironolactone 25 mg tablet 25 mg PO Q48H Blood pressure 09/15/24
acetaminophen 650 mg tablet,extended release 1,300 mg PO BID 12/12/24
aspirin 81 mg tablet,delayed release 81 mg PO DAILY 12/12/24
escitalopram oxalate 10 mg tablet 10 mg PO QPM 12/12/24
topiramate 50 mg tablet 50 mg PO BID 12/12/24
valsartan 80 mg tablet 80 mg PO QPM 12/12/24
Review of Systems
-
History Source: Patient
A 12 point ROS was completed and negative except as noted: Yes
Constitutional: Reports No Symptoms
EENT: Reports No Symptoms
Respiratory: Reports No Symptoms
Cardiac: Reports No Symptoms
Abdomen/GI: Reports No Symptoms
: Reports No Symptoms
Musculoskeletal: Reports No Symptoms
Skin: Reports No Symptoms
Neurological: Reports See HPI
Endocrine: Reports No Symptoms
Hematologic/Lymphatic: Reports No Symptoms
Psych: Reports No Symptoms
Physical Exam
Vital Signs
Vital Signs
Temp Pulse Resp BP Pulse Ox
98.4 F 51 15 183/74 98
12/12/24 14:11 12/12/24 18:15 12/12/24 18:15 12/12/24 18:00 12/12/24 18:15
Physical Exam
General: Well Developed, Well Nourished and No Apparent Distress
HEENT: NormoCephalic, Moist mucous membranes and Atraumatic
Respiratory: Clear
Cardiac: S1/S2 and Regular Rhythm; No Murmur or Rub
GI: Soft, Non Tender, Non Distended and Normal Bowel Sounds; No Organomegaly
Rectal: Deferred by Provider
Musculoskeletal: No Clubbing, No Cyanosis and No Edema
Skin: No Rash
Neuro: Nonfocal/grossly intact
Laboratory Results
-
12/12/24 15:37
12/12/24 15:37
Laboratory Results
PT 14.1 Sec (11.4-14.6) 12/12/24 15:37
INR 1.05 12/12/24 15:37
APTT 26.7 Sec (23.4-35.0) 12/12/24 15:37
Total Bilirubin Cancelled 12/12/24 15:37
AST Cancelled 12/12/24 15:37
ALT Cancelled 12/12/24 15:37
Alkaline Phosphatase Cancelled 12/12/24 15:37
Troponin I < 0.012 ng/ml 12/12/24 15:37
Data Reviewed
-
Lab Data: Labs Reviewed by me
Old Records: Reviewed
Impression/Plan
-
IMPRESSION:
PLAN:
# Expressive aphasia secondary to ocular migraine versus rule out CVA
# History of ocular migraines
-No neurological symptoms currently
- CT head showed no acute intracranial abnormality
- CTA head and neck shows small outpouching measuring 2 mm along the mid extracranial right ICA which may represent small aneurysm, atherosclerotic calcification of the right carotid bifurcation 30% stenosis
-Tylenol, Toradol, Benadryl, Compazine for migraine
-Check MRI brain
- Continue aspirin
- Neurology consulted
Essential hypertension
- Continue Coreg, spironolactone, valsartan
Nonobstructive CAD
History of provoked DVT from left ankle surgery and cast
- No longer on blood thinner
Rheumatoid arthritis
Pulmonary nodules
Anxiety/depression
- Continue Lexapro
GERD
- Continue omeprazole
History of abnormal uterine bleeding status post hysterectomy
History of dysplastic colon polyp status post colectomy
Obesity
- Continue Topamax for weight loss
Full code
DVT prophylaxis�SCDs
Regular diet
[2024-12-12] MEDS: TORADOL 15 MG IV (19:28)
[2024-12-12] MEDS: TYLENOL 1000 MG PO (19:28)
[2024-12-12] MEDS: BENADRYL 25 MG IV (19:31)
--- NOTE | 2024-12-12 19:36 | EDRN ---
Pt has had a frontal headache x 4 weeks associated with intermittent white flashes in the corner of her L eye. Pt says she was at work today and was unable to speak properly and when she had to write down numbers/letters someone read to her, she
wrote down the wrote numbers/letters. Pt knew what she wanted to say and write but it did not come out properly. Slight photophobia, nausea. Pt denies cp, sob, abd pain, vomiting, weakness, dizziness.
[2024-12-12] MEDS: ALDACTONE 25 MG PO (22:02)
[2024-12-12] MEDS: TOPAMAX 50 MG PO (22:03)
[2024-12-12] MEDS: COREG 25 MG PO (22:03)
[2024-12-13 03:00] VITALS: BP 180/79
[2024-12-13 07:20] VITALS: BP 161/100
--- NOTE | 2024-12-13 07:38 | W.PN.HOSP.TC ---
Today's Communication/Plan
-
MRI brain WITH contrast ordered
Resume Coreg tonight, if BP still high 1-2 hours after Coreg given, can try resuming Valsartan
Monitor on telemetry
Plavix+Aspirin
Assessment / Plan
Assessment / Plan
Physical Exam
General: Well Developed, Well Nourished and No Apparent Distress
HEENT: Normocephalic, Moist mucous membranes and Atraumatic
Respiratory: Clear to Auscultation Bilaterally
Cardiac: S1/S2 and Regular Rhythm
GI: Soft, Non Tender, Non Distended and Normal Bowel Sounds
Musculoskeletal: No Cyanosis and No Edema
Skin: Warm. Dry.
Neuro: Nonfocal/grossly intact
Assessment/Plan
69-year-old female past medical history of ocular migraines, pulmonary nodules, hypertension, nonobstructive CAD, provoked DVT, presenting for headache expressive aphasia. She presented with headache for the past 3 weeks with new onset of
expressive aphasia this morning. She has had constant ocular migraine for the past 3 weeks associate with occasional blurry vision, floaters, flashing lights, pain behind the eyes, sensitivity to light and nausea. She has been stressed and
attributed headaches to stress. She was on migraine medication years ago but does not remember what the medication was. On 12/12/24 at 9 AM while talking to a customer she realized that she could not express herself. She knew what she wanted to
say but could not say the correct words. While she was trying to write something down she knew what to write but wrote the wrong thing. At 10:30 AM he went to the bank and was unable to express herself to the staff there. She was told to seek
medical care. She went to urgent care and was told to come to the emergency room. In urgent care she was starting to speak better. By time she got to emergency room her speech returned to normal and only has ongoing headache with visual changes.
She does not take any blood thinners or antiplatelet medications. She did take her blood pressure medications on 12/12/24 morning. She denied any facial droop, weakness, numbness or tingling. She was noted to have some nausea when she moves her eyes
too quickly and feels like there is pressure behind the eyes. Her sister had history of multiple brain aneurysms requiring multiple surgeries. 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
to discuss enlarged pulmonary nodule. She is a former smoker. She drinks alcohol occasionally.
# Expressive aphasia secondary to ocular migraine versus rule out CVA
# History of ocular migraines
- No neurological symptoms currently
- CT head showed no acute intracranial abnormality
- CTA head and neck shows small outpouching measuring 2 mm along the mid extracranial right ICA which may represent small aneurysm, atherosclerotic calcification of the right carotid bifurcation 30% stenosis
- Tylenol, Toradol, Benadryl, Compazine for migraine
- MRI brain with no stroke
- Continue aspirin
- Neurology consulted
- I communicated (via [place] [employer] communication on 12/13/24) with on-call neurologist Dr. Solo Ulloa and he said: 'May continue both aspirin and Plavix until she sees a Neurologist. Can normalize blood pressure.'
Pulmonary Nodules
New Parotid Gland Nodule
- Spoke with oncology and neurology, check MRI brain with contrast as well (ordered)
- Oncology consulted for evaluation of possible cancer
Essential hypertension
- Initially, antihypertensive medications were held for permissive hypertension, but I confirmed with neurologist on 12/13/24 evening, that antihypertensives can be resumed
- RESUME Coreg, spironolactone
- Resume Valsartan if BP remains high or does not drop too much after resuming Coreg this evening
Nonobstructive CAD
History of provoked DVT from left ankle surgery and cast
- No longer on blood thinner
Rheumatoid arthritis
Pulmonary nodules
Anxiety/depression
- Continue Lexapro
GERD
- Continue omeprazole
History of abnormal uterine bleeding status post hysterectomy
History of dysplastic colon polyp status post colectomy
Obesity
- Continue Topamax for weight loss
Full code
DVT prophylaxis�SCDs. Lovenox
Diet: Low sodium, cholesterol-lowering diet
Anticipated Discharge: 24 - 48 hours
Subjective/Interval History
-
Date of Service: December 13, 2024
Patient was seen and examined. Her initial, presenting symptoms had resolved.
Objective Data
-
Labs:
Laboratory Results
12/13/24
06:00
WBC Pending
Hgb Pending
Hct Pending
Plt Count Pending
Sodium Pending
Potassium Pending
Chloride Pending
Carbon Dioxide Pending
BUN Pending
Creatinine Pending
Glucose Pending
Calcium Pending
Total Bilirubin Pending
AST Pending
ALT Pending
Alkaline Phosphatase Pending
Vital Signs:
Vital Signs
Temp Pulse Resp BP Pulse Ox
97.5 F 50 20 180/79 97
12/13/24 03:00 12/13/24 03:00 12/13/24 03:00 12/13/24 03:00 12/13/24 03:00
[2024-12-13] MEDS: TORADOL 15 MG IV (08:10)
[2024-12-13] MEDS: CLARITIN 10 MG PO (08:11)
[2024-12-13] MEDS: PROTONIX 40 MG PO (08:11)
[2024-12-13] MEDS: TOPAMAX 50 MG PO ×2 (08:11→21:42)
[2024-12-13] MEDS: ASPIR LOW (ENTERIC COATED) 81 MG PO (08:11)
--- NOTE | 2024-12-13 08:24 | CON.NEURO4 ---
Consultation - Neurology 4
-
CONSULTING PHYSICIAN: Dr. Solo Ulloa
REFERRING PHYSICIAN: Dr. Eugene Diaz
DICTATED BY: Dr. Solo Ulloa
DATE/TIME OF REQUEST: 12/13/2024
DATE/TIME OF CONSULTATION: 12/13/2024
Reason for Consultation: Ocular migraine and speech difficulty.
ASSESSMENT AND PLAN:
The patient is a 69 years old female with a past medical history of ocular migraines and headache, who presented with headache and some difficulty with speech, and says that she had difficulty in getting the words out for about 15 minutes. It is
likely that the patient had a TIA. Also, the headache that the patient has is predominantly tension-type headache along with some symptoms of a migraine headache.
The patient has been under a lot of stress at work over the last 3 weeks as according the patient she has been working very hard and had a lot of responsibility at work, and 3 weeks ago was a time when her current headaches started. She
predominantly has a tension type of headache, which is daily headache, and is a pressure-like and bilateral headache, however she does have some symptoms of a migraine headache.
MRI of the brain does not show any acute intracranial abnormality.
The plan is to get MRI of the brain with contrast also.
The neurologic examination is normal.
Continue current medications including Lexapro and topiramate.
The patient given discharged if the MRI of the brain with contrast is normal and she will follow-up with neurology in the clinic in about 2 weeks.
I had a detailed discussion with the patient and her daughter and they verbalized understanding of our discussion.
Will sign off. Please call if you have any question.
History of Present Illness:
69-year-old female past medical history of ocular migraines, hypertension, who presented for evaluation of headache and expressive aphasia that lasted for about 15 minutes while she was at work. She presented with headache for the past 3 weeks with
new onset of expressive aphasia on the day of admission. She has had constant ocular migraine for the past 3 weeks associated with occasional blurry vision, floaters, flashing lights, pain behind the eyes, sensitivity to light and nausea. She has
been stressed and attributed headaches to stress. She was on migraine medication years ago but does not remember what the medication was.
At 9 AM on 12/12/2024, while talking to a customer she realized that she could not express herself. She knew what she wanted to say but could not say the correct words. While she was trying to write something down she knew what to write but wrote
the wrong thing. She went to urgent care and was told to come to the emergency room. In urgent care she was starting to speak better. By time she got to emergency room her speech returned to normal and only has ongoing headache with visual
changes. She does not take any blood thinners or antiplatelet medications. She did take her blood pressure medication this morning.
Review of Systems:
The patient denies dizziness, chest pain, shortness of breath, fever, chills, nausea and vomiting.
Neurologic Examination:
The patient is alert and oriented x 3,
Speech is clear,
The cranial nerves II to XII are grossly intact,
The motor strength is grossly 5/5 bilaterally,
The sensations are grossly intact,
The cerebellar examination showed does not show limb ataxia.
Vital Signs and Labs
-
Vital Signs and Labs:
Vital Signs
Temp Pulse Resp BP Pulse Ox
36.4 C 50 20 180/79 97
12/13/24 03:00 12/13/24 03:00 12/13/24 03:00 12/13/24 03:00 12/13/24 03:00
PT 14.1 Sec (11.4-14.6) 12/12/24 15:37
INR 1.05 12/12/24 15:37
APTT 26.7 Sec (23.4-35.0) 12/12/24 15:37
Sodium 137 mmol/L (135-145) 12/12/24 15:37
Potassium mmol/L (3.5-5.1) 12/12/24 15:37
BUN 17 mg/dl (7-17) 12/12/24 15:37
Glucose 78 mg/dl (70-99) 12/12/24 15:37
Calcium 9.2 mg/dl (8.4-10.2) 12/12/24 15:37
Bat-A-Hsifdxuzokz Pept 254 pg/ml 12/12/24 15:37
Medications
-
Active Medications
Generic Name Dose Route Start Last Admin
Trade Name Freq PRN Reason Stop Dose Admin
Aspirin 81 mg 12/13/24 08:00 12/13/24 08:11
Aspirin 81 Mg (Enteric Coated) Tablet PO 01/10/25 07:59 81 mg
DAILY RONEN Administration
Carvedilol 25 mg 12/12/24 21:33 12/12/24 22:03
Carvedilol 25 Mg Tablet PO 01/09/25 21:32 25 mg
On Hold: 12/13/24 07:44 BID RONEN Administration
Escitalopram Oxalate 10 mg 12/13/24 18:00
Escitalopram 10 Mg Tablet PO 01/10/25 17:59
QPM RONEN
Ketorolac Tromethamine 15 mg 12/12/24 19:12 12/13/24 08:10
Ketorolac 15 Mg/Ml Injection IV 12/17/24 19:11 15 mg
Q6HPRN PRN Administration
headache
Loratadine 10 mg 12/13/24 08:00 12/13/24 08:11
Loratadine 10 Mg Tablet PO 01/10/25 07:59 10 mg
DAILY RONEN Administration
Lorazepam 0.25 mg 12/13/24 07:44
Lorazepam 2 Mg/Ml Vial IV 12/13/24 17:00
ONCE PRN PRN
MRI
Non-Formulary Medication 1,300 mg 12/13/24 08:15
Acetaminophen PO 01/10/25 08:14
BID RONEN
Pantoprazole Sodium 40 mg 12/13/24 08:00 12/13/24 08:11
Pantoprazole 40 Mg Delayed Release Tablet PO 01/10/25 07:59 40 mg
DAILY RONEN Administration
Prochlorperazine Edisylate 10 mg 12/12/24 19:12
Prochlorperazine 10 Mg/2 Ml Vial IV 01/09/25 19:11
Q6HPRN PRN
nausea
Sodium Chloride 0.125 ml 12/13/24 07:50
Nss (Pf) 10 Ml Vial For Ativan 0.25 Mg Dose IV 12/13/24 17:00
ONCE PRN PRN
IV LORAZEPAM DILUTION
Spironolactone 25 mg 12/12/24 21:33 12/12/24 22:02
Spironolactone 25 Mg Tablet PO 01/09/25 21:32 25 mg
On Hold: 12/13/24 07:44 Q48H RONEN Administration
Topiramate 50 mg 12/12/24 22:00 12/13/24 08:11
Topiramate 25 Mg Tablet PO 01/09/25 21:59 50 mg
BID RONEN Administration
Valsartan 80 mg 12/13/24 18:00
Valsartan 80 Mg Tablet PO 01/10/25 17:59
QPM RONEN
Home Medications
�Medication �Instructions �Recorded
omeprazole 40 mg capsule,delayed 40 mg PO DAILY ##30 11/27/16
release
carvedilol 25 mg tablet 25 mg PO BID Blood Pressure 10/07/22
fexofenadine 180 mg tablet 180 mg PO DAILY 09/15/24
([facility])
spironolactone 25 mg tablet 25 mg PO Q48H Blood pressure 09/15/24
acetaminophen 650 mg 1,300 mg PO BID 12/12/24
tablet,extended release
aspirin 81 mg tablet,delayed 81 mg PO DAILY 12/12/24
release
escitalopram oxalate 10 mg tablet 10 mg PO QPM 12/12/24
topiramate 50 mg tablet 50 mg PO BID 12/12/24
valsartan 80 mg tablet 80 mg PO QPM 12/12/24
[2024-12-13 09:31] LABS: Hematocrit 43.8 % (37.0-47.0); Hemoglobin 14.2 g/dL (12.0-16.0); Mean Corp Hgb Conc. 32.4 g/dL (33.0-37.0); Mean Corpuscular Volume 91.4 fL (81.0-99.0); Nucleated Red Blood Cells % 0 %; Platelet Count 208 10^3/uL (130-400); Red Cell Dist. Width 15.1 % (11.5-14.5)
[2024-12-13] MEDS: TYLENOL 1000 MG PO ×2 (10:03→21:42)
[2024-12-13 10:06] LABS: ALT (SGPT) 11 U/L (0-35); AST (SGOT) 18 U/L (14-36); Albumin 4.1 g/dl (3.5-5.0); Alkaline Phosphatase 61 U/L (38-126); Blood Urea Nitrogen 12 mg/dl (7-17); Calcium 9.0 mg/dl (8.4-10.2); Carbon Dioxide 26 mmol/L (22-30); Chloride 105 mmol/L (98-107); Estimated Creatinine Clearance 90 ml/min; Glucose 86 mg/dl (70-99); Potassium 3.9 mmol/L (3.5-5.1); Sodium 137 mmol/L (135-145); Total Protein 7.4 g/dl (6.3-8.2); eGFR > 60.00
[2024-12-13] MEDS: ATIVAN 0.25 MG IV (10:27)
[2024-12-13 12:06] VITALS: BP 195/93
--- NOTE | 2024-12-13 13:12 | CM ---
capacity manager reviewed patient's chart and met with patient and patient lives alone in a one story home, patient is independent with adl's and ambulation, patient has a cane, w/c and crutches from previous needs. Patient works, home no needs when
stable.
PCP: Earl Wen
Pharmacy: [facility] in [place].
[2024-12-13 15:06] VITALS: BP 185/106
[2024-12-13] MEDS: LEXAPRO 10 MG PO (17:19)
[2024-12-13 19:00] VITALS: BP 159/87
[2024-12-13] MEDS: COREG 25 MG PO (21:40)
[2024-12-13] MEDS: PLAVIX 75 MG PO (21:40)
[2024-12-13] MEDS: LOVENOX 40 MG SC (21:41)
[2024-12-13 23:00] VITALS: BP 163/78
[2024-12-14] VITALS (8 sets, daily range): BP systolic 123–208; BP diastolic 80–100
--- NOTE | 2024-12-14 07:05 | W.PN.HOSP.TC ---
Today's Communication/Plan
-
See plan
Assessment / Plan
Assessment / Plan
Physical Exam
General: Well Developed, Well Nourished and No Apparent Distress
HEENT: Normocephalic, Moist mucous membranes and Atraumatic
Respiratory: Clear to Auscultation Bilaterally
Cardiac: S1/S2 and Regular Rhythm
GI: Soft, Non Tender, Non Distended and Normal Bowel Sounds
Musculoskeletal: No Cyanosis and No Edema
Skin: Warm. Dry.
Neuro: Nonfocal/grossly intact
Assessment/Plan
69-year-old female past medical history of ocular migraines, pulmonary nodules, hypertension, nonobstructive CAD, provoked DVT, presenting for headache expressive aphasia. She presented with headache for the past 3 weeks with new onset of
expressive aphasia this morning. She has had constant ocular migraine for the past 3 weeks associate with occasional blurry vision, floaters, flashing lights, pain behind the eyes, sensitivity to light and nausea. She has been stressed and
attributed headaches to stress. She was on migraine medication years ago but does not remember what the medication was. On 12/12/24 at 9 AM while talking to a customer she realized that she could not express herself. She knew what she wanted to
say but could not say the correct words. While she was trying to write something down she knew what to write but wrote the wrong thing. At 10:30 AM he went to the bank and was unable to express herself to the staff there. She was told to seek
medical care. She went to urgent care and was told to come to the emergency room. In urgent care she was starting to speak better. By time she got to emergency room her speech returned to normal and only has ongoing headache with visual changes.
She does not take any blood thinners or antiplatelet medications. She did take her blood pressure medications on 12/12/24 morning. She denied any facial droop, weakness, numbness or tingling. She was noted to have some nausea when she moves her eyes
too quickly and feels like there is pressure behind the eyes. Her sister had history of multiple brain aneurysms requiring multiple surgeries. 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
to discuss enlarged pulmonary nodule. She is a former smoker. She drinks alcohol occasionally.
# Expressive aphasia secondary to ocular migraine versus rule out CVA
# History of ocular migraines
- No neurological symptoms currently
- CT head showed no acute intracranial abnormality
- CTA head and neck shows small outpouching measuring 2 mm along the mid extracranial right ICA which may represent small aneurysm, atherosclerotic calcification of the right carotid bifurcation 30% stenosis
- Tylenol, Toradol, Benadryl, Compazine for migraine
- MRI brain with no stroke
- Continue aspirin
- Neurology consulted
- I communicated (via [place] [employer] communication on 12/13/24) with on-call neurologist Dr. Solo Ulloa and he said: 'May continue both aspirin and Plavix until she sees a Neurologist. Can normalize blood pressure.'
- Neurology re-consulted given patient's reports of (more than 1 week duration of) depth perception difficulties, trouble with forgetfulness and slowed reaction time for more than 1 week, writing incorrect words
Pulmonary Nodules
New Parotid Gland Nodule
- Spoke with oncology and neurology, check MRI brain with contrast as well (ordered)
- Oncology consulted for evaluation of possible cancer
Essential hypertension
- Initially, antihypertensive medications were held for permissive hypertension, but I confirmed with neurologist on 12/13/24 evening, that antihypertensives can be resumed
- RESUME Coreg, spironolactone
- Resume Valsartan
- PRN Hydralazine for high BP
Nonobstructive CAD
History of provoked DVT from left ankle surgery and cast
- No longer on blood thinner
Rheumatoid arthritis
Pulmonary nodules
Anxiety/depression
- Continue Lexapro
GERD
- Continue omeprazole
History of abnormal uterine bleeding status post hysterectomy
History of dysplastic colon polyp status post colectomy
Obesity
- Continue Topamax for weight loss
Full code
DVT prophylaxis�SCDs. Joey
Diet: Low sodium, cholesterol-lowering diet
Anticipated Discharge: 24 - 48 hours
Subjective/Interval History
-
Date of Service: December 14, 2024
Patient was seen and examined. She denied any new significant symptoms or complaints.
Objective Data
-
Labs:
Laboratory Results
12/14/24
06:00
WBC Pending
Hgb Pending
Hct Pending
Plt Count Pending
Sodium Pending
Potassium Pending
Chloride Pending
Carbon Dioxide Pending
BUN Pending
Creatinine Pending
Glucose Pending
Calcium Pending
Vital Signs:
Vital Signs
Temp Pulse Resp BP Pulse Ox
97.6 F 53 16 123/82 96
12/14/24 03:15 12/14/24 03:15 12/14/24 03:15 12/14/24 03:15 12/14/24 03:15
I&O
12/13/24 12/14/24 12/15/24
05:59 06:59 06:59
Intake Total 600 / 600
Balance 600 / 600
[2024-12-14] MEDS: COREG 25 MG PO ×2 (08:03→20:41)
[2024-12-14] MEDS: CLARITIN 10 MG PO (08:03)
[2024-12-14] MEDS: PLAVIX 75 MG PO (08:03)
[2024-12-14] MEDS: ASPIR LOW (ENTERIC COATED) 81 MG PO (08:03)
[2024-12-14] MEDS: TYLENOL 1000 MG PO ×2 (08:03→20:42)
[2024-12-14] MEDS: TOPAMAX 50 MG PO ×2 (08:03→20:42)
[2024-12-14] MEDS: TORADOL 15 MG IV ×2 (08:21→15:52)
[2024-12-14 08:36] LABS: Hematocrit 46.3 % (37.0-47.0); Hemoglobin 14.6 g/dL (12.0-16.0); Mean Corp Hgb Conc. 31.5 g/dL (33.0-37.0); Mean Corpuscular Volume 91.9 fL (81.0-99.0); Platelet Count 222 10^3/uL (130-400); Red Cell Dist. Width 15.1 % (11.5-14.5)
[2024-12-14 09:07] LABS: Blood Urea Nitrogen 14 mg/dl (7-17); Calcium 8.9 mg/dl (8.4-10.2); Carbon Dioxide 26 mmol/L (22-30); Chloride 107 mmol/L (98-107); Estimated Creatinine Clearance 80 ml/min; Glucose 84 mg/dl (70-99); Potassium 4.0 mmol/L (3.5-5.1); Sodium 141 mmol/L (135-145); eGFR > 60.00
--- NOTE | 2024-12-14 09:41 | PTCARENOTE ---
MD Diaz notified of patient's BP 180/86 post coreg administration. no new orders at this time. will continue to monitor.
--- NOTE | 2024-12-14 11:07 | CON.ONC ---
Consultation
-
Date Consultation Requested: 12/13/24
Date Consultation Performed: 12/14/24
Requesting Provider: Eugene Diaz MD
Performing Provider: Senait Joshi MD; Alee Rucker MD
Reason for Consultation: Pulmonary Nodule, Parotid Gland Nodule
Impression
Impression
Expressive aphasia possibly secondary to TIA vs. ocular migraine vs cerebral vasculitis
Ocular Migraines
Pulmonary Nodule: 0.4cm in right lower lobe , 0.85cm in right lower lobe pulmonary nodule adjacent to the dome of the right hemidiaphragm
1.0 cm soft tissue nodule within the right parotid gland
Hypertension
Plan
Plan
--Await Brain MRI with contrast results
--Antiphospholipid panel ordered d/t history of DVT
--The pulmonary nodules seems stable from August 2024, the patient currently follow Dr. Samuel and will have a follow up on 2024 for continued surveillance of the pulmonary nodules. Will leave up to Dr. Samuel's discretion for decision on
appropriateness of PET scan as nodules are borderline in size. Biopsy may also be difficult due to location.
--Follow up with ENT for parotid nodule with multiple ENT symptoms including sinusitis, hearing loss, bilateral jaw stiffness. Patient has appointment with Dr. Delgado in February 2025.
Patient History
History of Present Illness
Ms Jaylen Lambert is a 69 year old female with past medical history of ocular migraines, provoked DVT, scleroderma, RA, squamous cell carcinoma s/p excision, chronic bronchitis, and 10 pack years smoking history (stopped 20+ years ago) presented with
headache and expressive aphasia.
Over the past 3 weeks, she has experienced headaches, for which she has been taking tylenol for. In the last week, she has noted changes in depth perception, particularly while driving, and her coworkers have noticed increased forgetfulness and
slowed reaction time. Two days prior to admission, she developed new visual disturbances, described as floaters and difficulty clearly seeing her coworker's face. She also experienced difficulty with verbal expression�she was able to read and
comprehend words, but unable to articulate the words she intended to say. When attempting to write, she produced incorrect or unintended words/characters. These symptoms prompted her to seek medical evaluation. She also reports progressive hearing
loss over the past 6 months.
Regarding her pulmonary findings: a 0.4 cm pulmonary nodule was first identified in 2018. On CT during hospitalization in August 2024, the original nodule remained 0.4 cm, but a separate 0.85 cm nodule was noted to be increased in size (.5mm in 2019).
She is being followed by pulmonology with Dr. Samuel. On this admission, the nodules appears stable from previous study. She reports shortness of breath with exertion, which she attributes to deconditioning from chronic left hip issues; symptoms
have been gradually improving. She denies chest pain. She has had an intentional 50 lb weight loss since October last year through a structured weight loss program.
Incidental finding of 1.0 cm soft tissue nodule in right parotid gland also noted. Ms. Jaylen Lambert reports intermittent right lower jaw pain, worse in the mornings, associated with tenderness and intermittent oral dryness, as well as bilateral jaw
stiffness. She denies facial weakness, drooping, and difficulty moving her mouth. She made an appointment with Dr. Delgado in February 2025.
Past-Medical/Surgical History
Ocular Migraines
Provoked DVT
Scleroderma
RA
Fibroids s/p hysterectomy
Squamous Cell Carcinoma s/p excision
Chronic Bronchitis
Former smoker
Hypertension
Colon Polyps
Sx removal of Neck Cyst
Patient Medication
�Medication �Instructions �Recorded �Confirmed �Last Taken �Type
omeprazole 40 mg capsule,delayed 40 mg PO DAILY ##30 11/27/16 12/12/24 12/12/24 Rx
release
carvedilol 25 mg tablet 25 mg PO BID Blood Pressure 10/07/22 12/12/24 12/12/24 History
fexofenadine 180 mg tablet 180 mg PO DAILY ALLERGY 09/15/24 12/12/2425 History
([facility])
spironolactone 25 mg tablet 25 mg PO Q48H Blood pressure 09/15/24 12/12/24 12/10/24 History
acetaminophen 650 mg 1,300 mg PO BID Pain 12/12/24 12/12/24 12/12/24 History
tablet,extended release
aspirin 81 mg tablet,delayed 81 mg PO DAILY Blood Clot 12/12/24 12/12/24 12/12/24 History
release Prevention/Tx
escitalopram oxalate 10 mg tablet 10 mg PO QPM Mental Health/Anxiety 12/12/24 12/12/24 12/11/24 History
topiramate 50 mg tablet 50 mg PO BID Antiseizure Agent 12/12/24 12/12/24 12/12/24 History
valsartan 80 mg tablet 80 mg PO QPM 12/12/24 12/12/24 12/11/24 History
Active Medications
Generic Name Dose Route Start Last Admin
Trade Name Freq PRN Reason Stop Dose Admin
Acetaminophen 1,000 mg 12/13/24 09:00 12/14/24 08:03
Acetaminophen 500 Mg Tablet PO 01/10/25 08:59 1,000 mg
BID RONEN Administration
Aspirin 81 mg 12/13/24 08:00 12/14/24 08:03
Aspirin 81 Mg (Enteric Coated) Tablet PO 01/10/25 07:59 81 mg
DAILY RONEN Administration
Carvedilol 25 mg 12/12/24 21:33 12/14/24 08:03
Carvedilol 25 Mg Tablet PO 01/09/25 21:32 25 mg
BID RONEN Administration
Clopidogrel Bisulfate 75 mg 12/13/24 19:20 12/14/24 08:03
Clopidogrel 75 Mg Tablet PO 01/10/25 19:19 75 mg
DAILY RONEN Administration
Enoxaparin Sodium 40 mg 12/13/24 20:00 12/13/24 21:41
Enoxaparin Sodium 40 Mg/0.4 Ml Syringe SC 01/10/25 19:59 40 mg
QPM RONEN Administration
Escitalopram Oxalate 10 mg 12/13/24 18:00 12/13/24 17:19
Escitalopram 10 Mg Tablet PO 01/10/25 17:59 10 mg
QPM RONEN Administration
Ketorolac Tromethamine 15 mg 12/12/24 19:12 12/14/24 08:21
Ketorolac 15 Mg/Ml Injection IV 12/17/24 19:11 15 mg
Q6HPRN PRN Administration
headache
Loratadine 10 mg 12/13/24 08:00 12/14/24 08:03
Loratadine 10 Mg Tablet PO 01/10/25 07:59 10 mg
DAILY RONEN Administration
Lorazepam 0.25 mg 12/13/24 19:18
Lorazepam 2 Mg/Ml Vial IV 01/10/25 19:17
ONCE PRN PRN
MRI
Pantoprazole Sodium 40 mg 12/13/24 08:00 12/13/24 08:11
Pantoprazole 40 Mg Delayed Release Tablet PO 01/10/25 07:59 40 mg
On Hold: 12/13/24 19:20 DAILY RONEN Administration
Prochlorperazine Edisylate 10 mg 12/12/24 19:12
Prochlorperazine 10 Mg/2 Ml Vial IV 01/09/25 19:11
Q6HPRN PRN
nausea
Sodium Chloride 0 ml 12/13/24 20:00
Sodium Chloride 0.9% (Preservative Free) 10 Ml Vial IV 01/10/25 19:59
PRN PRN
IV Lorazepam dilution
Protocol
Spironolactone 25 mg 12/12/24 21:33 12/12/24 22:02
Spironolactone 25 Mg Tablet PO 01/09/25 21:32 25 mg
Q48H RONEN Administration
Topiramate 50 mg 12/12/24 22:00 12/14/24 08:03
Topiramate 25 Mg Tablet PO 01/09/25 21:59 50 mg
BID RONEN Administration
Valsartan 80 mg 12/13/24 18:00
Valsartan 80 Mg Tablet PO 01/10/25 17:59
QPM RONEN
Review of Systems
-
History Source: Patient
Constitutional: Reports Weight Loss (intentional); Denies Fever or Weakness
EENT: Reports Hearing Loss and Other (Mouth dryness)
Respiratory: Reports Trouble Breathing (on exertion, improving)
Cardiac: Denies Chest Pain or Palpitations
GI: Reports No Symptoms
: Reports No Symptoms
Musculoskeletal: Reports Joint Pain
Neuro: Reports Headache and Other (expressive aphasia- seems resolved)
Hematologic/Lymphatic: Reports No Symptoms
Allergy / Immunology: Reports Other (Allergy)
Psych: Reports No Symptoms
Physical Exam
-
General: No Apparent Distress and Conversant
Cardiology: Normal Sinus Rhythm, S1 and S2
Pulmonary: Clear
GI: Soft, Normal Bowel Sounds and Other (Nontender)
Musculoskeletal: No Cyanosis and No Edema
Extremities: Pulses Present
Neurology: Other (CN 2-12 grossly intact)
Skin: Warm
Hematologic / Lymphatic: Other (no cervical, supraclavicular, axillary lymphadenopathy appreciated)
Psych: Calm
Labs
Lab Results
WBC 3.7 10^3/uL (4.8-10.8) L 12/14/24 07:31
RBC 5.04 10^6/uL (4.20-5.40) 12/14/24 07:31
Hgb 14.6 g/dL (12.0-16.0) 12/14/24 07:31
Hct 46.3 % (37.0-47.0) 12/14/24 07:31
MCV 91.9 fL (81.0-99.0) 12/14/24 07:31
MCH 29.0 pg (27.0-31.0) 12/14/24 07:31
MCHC 31.5 g/dL (33.0-37.0) L 12/14/24 07:31
RDW 15.1 % (11.5-14.5) H 12/14/24 07:31
Plt Count 222 10^3/uL (130-400) 12/14/24 07:31
MPV 10.7 fL (7.4-10.4) H 12/14/24 07:31
Abs Immat Gran (auto) 0.0 10^3/uL (0-0.05) 12/13/24 08:50
Absolute Neuts (auto) 2.5 10^3/uL (1.4-6.5) 12/13/24 08:50
Absolute Lymphs (auto) 1.2 10^3/uL (1.2-3.4) 12/13/24 08:50
Absolute Monos (auto) 0.3 10^3/uL (0.1-0.6) 12/13/24 08:50
Absolute Eos (auto) 0.0 10^3/uL (0-0.7) 12/13/24 08:50
Absolute Basos (auto) 0.0 10^3/uL (0-0.2) 12/13/24 08:50
Immature Gran % 0.2 % (0-0.5) 12/13/24 08:50
Neutrophils % 62.2 % (42.2-75.2) 12/13/24 08:50
Lymphocytes % 28.7 % (20.5-51.1) 12/13/24 08:50
Monocytes % 7.2 % (1.7-9.3) 12/13/24 08:50
Eosinophils % 0.7 % (0-6) 12/13/24 08:50
Basophils % 1.0 % (0-2) 12/13/24 08:50
Creatinine 0.9 mg/dL (0.6-1.0) 12/14/24 07:31
Vital Signs
Vital Signs
Temp Pulse Resp BP Pulse Ox
97.5 F 57 18 180/86 97
12/14/24 08:00 12/14/24 09:39 12/14/24 08:00 12/14/24 09:39 12/14/24 08:00
--- NOTE | 2024-12-14 11:27 | CM ---
CM reviewed chart, patient seen bedside.
Patient denies needs from CM at this time.
Oncology consulted, care ongoing.
CM will continue to follow for all d/c planning needs.
Plan; home no needs
--- NOTE | 2024-12-14 13:24 | W.PN.NEURO.1 ---
Subjective/Objective
Subjective Data
Date of Service: December 14, 2024
Objective Data
Vital Signs
Temp Pulse Resp BP Pulse Ox
36.8 C 53 16 155/83 93
12/14/24 11:30 12/14/24 11:30 12/14/24 11:30 12/14/24 11:30 12/14/24 11:30
Lab Results
12/14/24 07:31
12/14/24 07:31
PT 14.1 Sec (11.4-14.6) 12/12/24 15:37
INR 1.05 12/12/24 15:37
APTT 26.7 Sec (23.4-35.0) 12/12/24 15:37
Sodium 141 mmol/L (135-145) 12/14/24 07:31
Potassium 4.0 mmol/L (3.5-5.1) 12/14/24 07:31
BUN 14 mg/dl (7-17) 12/14/24 07:31
Glucose 84 mg/dl (70-99) 12/14/24 07:31
Calcium 8.9 mg/dl (8.4-10.2) 12/14/24 07:31
Tuq-T-Tewiwttdeey Pept 254 pg/ml 12/12/24 15:37
Patient Allergies
adhesive Allergy (Verified 08/24/24 15:06)
Rash
codeine Allergy (Verified 08/24/24 15:06)
Itching AND NAUSEA
hydromorphone (From Dilaudid) Allergy (Verified 08/24/24 15:06)
Anaphylaxis
latex Allergy (Verified 08/24/24 15:06)
MOUTH SORES/swelling
Sulfa (Sulfonamide Antibiotics) Allergy (Verified 08/24/24 15:06)
ITCHING AND SWELLING OF EARS, LIPS AND FINGERS
tramadol Allergy (Verified 08/24/24 15:06)
cold sweats
ACRYLIC Allergy (Uncoded 08/24/24 15:06)
swelling,itching
Past History
Past History
ED Past Medical History: Arrthythmia (SVT), CAD, GERD, HTN, Hypercholesterolemia, Other (DVT left leg June 2018 after orthopedic/ankle surgical procedure.) and Other (Pulmonary nodules, morbid obesity)
ED Past Surgical History: Bowel resection (Colon resection for Diverticulitis and Pre CA growth), Cardiac (Ablation), Gynecological (Hysterectomy and one ovary removed) and Orthopedic (ORIF Fibula,)
Social History
Tobacco: Former smoker (Quite 20 years ago. Started age 19 1/2 pack per day. )
Alcohol: None
Drug: None
Personal:
Living: with family
Employment: Employed
Family History
Family History: Other (Sister brain aneurysms )
Medications
-
Medications:
Generic Name Dose Route Start Last Admin
Trade Name Freq PRN Reason Stop Dose Admin
Acetaminophen 1,000 mg 12/13/24 09:00 12/14/24 08:03
Acetaminophen 500 Mg Tablet PO 01/10/25 08:59 1,000 mg
BID RONEN Administration
Aspirin 81 mg 12/13/24 08:00 12/14/24 08:03
Aspirin 81 Mg (Enteric Coated) Tablet PO 01/10/25 07:59 81 mg
DAILY RONEN Administration
Carvedilol 25 mg 12/12/24 21:33 12/14/24 08:03
Carvedilol 25 Mg Tablet PO 01/09/25 21:32 25 mg
BID RONEN Administration
Clopidogrel Bisulfate 75 mg 12/13/24 19:20 12/14/24 08:03
Clopidogrel 75 Mg Tablet PO 01/10/25 19:19 75 mg
DAILY RONEN Administration
Enoxaparin Sodium 40 mg 12/13/24 20:00 12/13/24 21:41
Enoxaparin Sodium 40 Mg/0.4 Ml Syringe SC 01/10/25 19:59 40 mg
QPM RONEN Administration
Escitalopram Oxalate 10 mg 12/13/24 18:00 12/13/24 17:19
Escitalopram 10 Mg Tablet PO 01/10/25 17:59 10 mg
QPM RONEN Administration
Ketorolac Tromethamine 15 mg 12/12/24 19:12 12/14/24 08:21
Ketorolac 15 Mg/Ml Injection IV 12/17/24 19:11 15 mg
Q6HPRN PRN Administration
headache
Loratadine 10 mg 12/13/24 08:00 12/14/24 08:03
Loratadine 10 Mg Tablet PO 01/10/25 07:59 10 mg
DAILY RONEN Administration
Lorazepam 0.25 mg 12/13/24 19:18
Lorazepam 2 Mg/Ml Vial IV 01/10/25 19:17
ONCE PRN PRN
MRI
Pantoprazole Sodium 40 mg 12/13/24 08:00 12/13/24 08:11
Pantoprazole 40 Mg Delayed Release Tablet PO 01/10/25 07:59 40 mg
On Hold: 12/13/24 19:20 DAILY RONEN Administration
Prochlorperazine Edisylate 10 mg 12/12/24 19:12
Prochlorperazine 10 Mg/2 Ml Vial IV 01/09/25 19:11
Q6HPRN PRN
headache
Sodium Chloride 0 ml 12/13/24 20:00
Sodium Chloride 0.9% (Preservative Free) 10 Ml Vial IV 01/10/25 19:59
PRN PRN
IV Lorazepam dilution
Protocol
Spironolactone 25 mg 12/12/24 21:33 12/12/24 22:02
Spironolactone 25 Mg Tablet PO 01/09/25 21:32 25 mg
Q48H RONEN Administration
Topiramate 50 mg 12/12/24 22:00 12/14/24 08:03
Topiramate 25 Mg Tablet PO 01/09/25 21:59 50 mg
BID RONEN Administration
Valsartan 80 mg 12/13/24 18:00
Valsartan 80 Mg Tablet PO 01/10/25 17:59
QPM RONEN
[2024-12-14 15:16] LABS: C-Reactive Protein < 5.00 mg/L (0.0-10.00)
--- NOTE | 2024-12-14 16:00 | PTCARENOTE ---
Ptient's BP elevated 208/98 while at rest, MD Diaz notified. new orders to be placed. will continue to monitor.
[2024-12-14] MEDS: APRESOLINE 5 MG IV (16:12)
[2024-12-14 16:23] LABS: Folate 4.9 ng/ml (2.76-20); Vitamin B12 254 pg/ml (239-931)
[2024-12-14] MEDS: LOVENOX 40 MG SC (17:31)
[2024-12-14] MEDS: DIOVAN 80 MG PO (17:31)
[2024-12-14] MEDS: LEXAPRO 10 MG PO (17:31)
[2024-12-14] MEDS: ALDACTONE 25 MG PO (20:42)
[2024-12-15] VITALS (7 sets, daily range): BP systolic 102–190; BP diastolic 53–104
--- NOTE | 2024-12-15 07:32 | W.PN.HOSP.TC ---
Today's Communication/Plan
-
Needs better blood pressure control. Added Nifedipine, consulted nephrology
Monitor on telemetry
Assessment / Plan
Assessment / Plan
Physical Exam
General: Well Developed, Well Nourished and No Apparent Distress
HEENT: Normocephalic, Moist mucous membranes and Atraumatic
Respiratory: Clear to Auscultation Bilaterally
Cardiac: S1/S2 and Regular Rhythm
GI: Soft, Non Tender, Non Distended and Normal Bowel Sounds
Musculoskeletal: No Cyanosis and No Edema
Skin: Warm. Dry.
Neuro: Nonfocal/grossly intact
Assessment/Plan
69-year-old female past medical history of ocular migraines, pulmonary nodules, hypertension, nonobstructive CAD, provoked DVT, presenting for headache expressive aphasia. She presented with headache for the past 3 weeks with new onset of
expressive aphasia this morning. She has had constant ocular migraine for the past 3 weeks associate with occasional blurry vision, floaters, flashing lights, pain behind the eyes, sensitivity to light and nausea. She has been stressed and
attributed headaches to stress. She was on migraine medication years ago but does not remember what the medication was. On 12/12/24 at 9 AM while talking to a customer she realized that she could not express herself. She knew what she wanted to
say but could not say the correct words. While she was trying to write something down she knew what to write but wrote the wrong thing. At 10:30 AM he went to the bank and was unable to express herself to the staff there. She was told to seek
medical care. She went to urgent care and was told to come to the emergency room. In urgent care she was starting to speak better. By time she got to emergency room her speech returned to normal and only has ongoing headache with visual changes.
She does not take any blood thinners or antiplatelet medications. She did take her blood pressure medications on 12/12/24 morning. She denied any facial droop, weakness, numbness or tingling. She was noted to have some nausea when she moves her eyes
too quickly and feels like there is pressure behind the eyes. Her sister had history of multiple brain aneurysms requiring multiple surgeries. 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
to discuss enlarged pulmonary nodule. She is a former smoker. She drinks alcohol occasionally.
# Expressive aphasia secondary to ocular migraine versus rule out CVA
# History of ocular migraines
- No neurological symptoms currently
- CT head showed no acute intracranial abnormality
- CTA head and neck shows small outpouching measuring 2 mm along the mid extracranial right ICA which may represent small aneurysm, atherosclerotic calcification of the right carotid bifurcation 30% stenosis
- Tylenol, Toradol, Benadryl, Compazine for migraine
- MRI brain (w/o contrast) with no stroke
- Continue aspirin
- Neurology consulted
- I communicated (via [place] Text communication on 12/13/24) with on-call neurologist Dr. Solo Ulloa and he said: 'May continue both aspirin and Plavix until she sees a Neurologist. Can normalize blood pressure.'
- Neurology re-consulted given patient's reports of (more than 1 week duration of) depth perception difficulties, trouble with forgetfulness and slowed reaction time for more than 1 week, writing incorrect words -- neurologist
Ervin on 12/15/24 communicated to me that MRI with contrast is unremarkable and patient can be seen as an outpatient
Pulmonary Nodules
New Parotid Gland Nodule
- Spoke with oncology and neurology, MRI brain with contrast showed no signifcant findings
- Oncology consulted for evaluation of possible cancer
- I communicated (on 12/15/24, via [place] [employer] communication) with Dr. Samuel who said that his office is taking care of it. Her appointment will be rescheduled towards the middle end of December 2024. No additional testing at
this time until Dr. Samuel sees her (as per Dr. Samuel)
- Follow up with ENT for parotid nodule with multiple ENT symptoms including sinusitis, hearing loss, bilateral jaw stiffness -- patient has appointment with Dr. Delgado in February 2025.
Essential hypertension
- Initially, antihypertensive medications were held for permissive hypertension, but I confirmed with neurologist on 12/13/24 evening, that antihypertensives can be resumed
- Previously resumed Coreg, spironolactone and Valsartan
- Nifedipine added on 12/15/24
- PRN Hydralazine for high BP
- Patient's blood pressure remains high as of 12/15/24 even after Nifedipine -- consulted nephrology, possible secondary hypertension
Nonobstructive CAD
History of provoked DVT from left ankle surgery and cast
- No longer on anticoagulation for this
Rheumatoid arthritis
Pulmonary nodules
Anxiety/depression
- Continue Lexapro
GERD
- Continue omeprazole
History of abnormal uterine bleeding status post hysterectomy
History of dysplastic colon polyp status post colectomy
Obesity
- Continue Topamax for weight loss
Full code
DVT prophylaxis�SCDs. Lovenox
Diet: Low sodium, cholesterol-lowering diet
Anticipated Discharge: 24 - 48 hours
Subjective/Interval History
-
Date of Service: December 15, 2024
Patient was seen and examined. She denied any new significant symptoms or complaints, has had headache later in the day.
Objective Data
-
Labs:
Laboratory Results
12/15/24
06:00
WBC Pending
Hgb Pending
Hct Pending
Plt Count Pending
Sodium Pending
Potassium Pending
Chloride Pending
Carbon Dioxide Pending
BUN Pending
Creatinine Pending
Glucose Pending
Calcium Pending
Vital Signs:
Vital Signs
Temp Pulse Resp BP Pulse Ox
97.8 F 55 16 145/76 92
12/15/24 03:37 12/15/24 03:37 12/15/24 03:37 12/15/24 03:37 12/15/24 03:37
I&O
12/14/24 12/15/24 12/16/24
06:59 06:59 06:59
Intake Total 600 / 600 780 / 780
Balance 600 / 600 780 / 780
[2024-12-15 07:56] LABS: Hematocrit 48.4 % (37.0-47.0); Hemoglobin 15.4 g/dL (12.0-16.0); Mean Corp Hgb Conc. 31.8 g/dL (33.0-37.0); Mean Corpuscular Volume 92.2 fL (81.0-99.0); Platelet Count 230 10^3/uL (130-400); Red Cell Dist. Width 15.1 % (11.5-14.5)
[2024-12-15] MEDS: ASPIR LOW (ENTERIC COATED) 81 MG PO (08:07)
[2024-12-15] MEDS: CLARITIN 10 MG PO (08:07)
[2024-12-15] MEDS: PLAVIX 75 MG PO (08:08)
[2024-12-15] MEDS: COREG 25 MG PO ×2 (08:08→20:17)
[2024-12-15] MEDS: TOPAMAX 50 MG PO ×2 (08:08→20:17)
[2024-12-15] MEDS: TYLENOL 1000 MG PO ×2 (08:08→20:18)
[2024-12-15] MEDS: APRESOLINE 5 MG IV (08:08)
[2024-12-15 08:21] LABS: Blood Urea Nitrogen 13 mg/dl (7-17); Calcium 9.2 mg/dl (8.4-10.2); Carbon Dioxide 26 mmol/L (22-30); Chloride 107 mmol/L (98-107); Estimated Creatinine Clearance 80 ml/min; Glucose 92 mg/dl (70-99); Potassium 4.1 mmol/L (3.5-5.1); Sodium 142 mmol/L (135-145); eGFR > 60.00
[2024-12-15] MEDS: ATIVAN 0.25 MG IV (09:54)
[2024-12-15] MEDS: NSS (PRESERVATIVE FREE) 0.125 ML IV (09:55)
[2024-12-15] MEDS: COMPAZINE 10 MG IV (11:04)
[2024-12-15] MEDS: PROCARDIA XL (EXTENDED RELEASE) 30 MG PO ×2 (13:01→20:18)
--- NOTE | 2024-12-15 13:55 | W.PN.ONC2 ---
Today's Communication / Plan
-
daughter at bedside during visit provided updates and questions answered
Impression
Impression
Expressive aphasia possibly secondary to TIA vs. ocular migraine vs cerebral vasculitis
Ocular Migraines
Pulmonary Nodule: 0.4cm in right lower lobe , 0.85cm in right lower lobe pulmonary nodule adjacent to the dome of the right hemidiaphragm
1.0 cm soft tissue nodule within the right parotid gland
Hypertension
Plan
Plan
--Await Brain MRI with contrast results
--f/u APLS panel d/t history of DVT
--The pulmonary nodules seems stable from August 2024, the patient currently follow Dr. Samuel and will have a follow up for continued surveillance of the pulmonary nodules. Defer to Dr. Samuel's discretion for decision on appropriateness of PET
scan as nodules are borderline in size. Biopsy may also be difficult due to location.
--Follow up with ENT for parotid nodule with multiple ENT symptoms including sinusitis, hearing loss, bilateral jaw stiffness. Patient has appointment with Dr. Delgado in February 2025.
Subjective/Objective
Subjective
persistent headache
poor sleep due to noise level in room
Vital Signs:
Vital Signs
Temp Pulse Resp BP Pulse Ox
97.5 F 59 18 177/105 97
12/15/24 11:15 12/15/24 13:01 12/15/24 11:15 12/15/24 13:01 12/15/24 11:15
Lab Results:
Laboratory Data
WBC 4.3 10^3/uL (4.8-10.8) L 12/15/24 07:36
Hgb 15.4 g/dL (12.0-16.0) 12/15/24 07:36
Plt Count 230 10^3/uL (130-400) 12/15/24 07:36
PT 14.1 Sec (11.4-14.6) 12/12/24 15:37
INR 1.05 12/12/24 15:37
APTT 26.7 Sec (23.4-35.0) 12/12/24 15:37
eGFR > 60.00 12/15/24 07:36
Physical Exam
HEENT: Moist Mucous Membranes; No Jaundice
Pulmonary: Other (unlabored)
GI: Soft
Extremities: Pulses Present
--- NOTE | 2024-12-15 17:00 | W.CON.NEPH ---
Consultation
-
Date/Time Consultation Requested: December 15, 2024 at 3:30 PM
Date/Time Consultation Performed: December 15, 2024 at 4:30 PM
Requesting Provider: Eugene Diaz
Performing Provider: Dr. Mack
Reason for Consultation: Uncontrolled hypertension
Medical History
-
Chief Complaint: Uncontrolled hypertension
History of Present Illness:
69-year-old female past medical history of ocular migraines, pulmonary nodules, hypertension, nonobstructive CAD, provoked DVT, presenting for headache expressive aphasia. She presented with headache for the past 3 weeks with new onset of
expressive aphasia. CT head showed no acute intracranial abnormality, MRI brain with no stroke. She continues to have headaches associated with blood pressure around 180 systolic with a diastolic over 100. She been seen by oncology as well for
pulmonary nodule being worked up.
Renal consultation for uncontrolled hypertension. Patient has been hypertensive for many years though worsening in the last few weeks..
Home blood pressure medications included carvedilol, spironolactone and valsartan
Past Medical History
Past medical history of ocular migraines, pulmonary nodules, hypertension, nonobstructive CAD, provoked DVT,
Social History
Tobacco: Non-Smoker
Alcohol: None
Allergies / Home Medications
Allergy/AdvReac Type Severity Reaction Status Date / Time
adhesive Allergy Rash Verified 08/24/24 15:06
codeine Allergy Itching Verified 08/24/24 15:06
AND NAUSEA
hydromorphone (From Dilaudid) Allergy Anaphylaxis Verified 08/24/24 15:06
latex Allergy MOUTH Verified 08/24/24 15:06
SORES/swelling
Sulfa (Sulfonamide Allergy ITCHING Verified 08/24/24 15:06
Antibiotics) AND
SWELLING
OF EARS,
LIPS AND
FINGERS
tramadol Allergy cold sweats Verified 08/24/24 15:06
ACRYLIC Allergy swelling,it Uncoded 08/24/24 15:06
elliot
�Medication �Instructions �Recorded �Confirmed �Type
omeprazole 40 mg capsule,delayed 40 mg PO DAILY ##30 11/27/16 12/12/24 Rx
release
carvedilol 25 mg tablet 25 mg PO BID Blood Pressure 10/07/22 12/12/24 History
fexofenadine 180 mg tablet 180 mg PO DAILY ALLERGY 09/15/24 12/12/24 History
([facility])
spironolactone 25 mg tablet 25 mg PO Q48H Blood pressure 09/15/24 12/12/24 History
acetaminophen 650 mg 1,300 mg PO BID Pain 12/12/24 12/12/24 History
tablet,extended release
aspirin 81 mg tablet,delayed 81 mg PO DAILY Blood Clot 12/12/24 12/12/24 History
release Prevention/Tx
escitalopram oxalate 10 mg tablet 10 mg PO QPM Mental Health/Anxiety 12/12/24 12/12/24 History
topiramate 50 mg tablet 50 mg PO BID Antiseizure Agent 12/12/24 12/12/24 History
valsartan 80 mg tablet 80 mg PO QPM 12/12/24 12/12/24 History
Review of Systems
-
Headache otherwise no chest pain shortness of breath nausea vomit
Physical Exam
Vital Signs
Vital Signs
Temp Pulse Resp BP Pulse Ox
98 F 58 14 181/102 97
12/15/24 15:04 12/15/24 15:04 12/15/24 15:04 12/15/24 15:04 12/15/24 15:04
Lab Results
WBC 4.3 10^3/uL (4.8-10.8) L 12/15/24 07:36
RBC 5.25 10^6/uL (4.20-5.40) 12/15/24 07:36
Hgb 15.4 g/dL (12.0-16.0) 12/15/24 07:36
Hct 48.4 % (37.0-47.0) H 12/15/24 07:36
Plt Count 230 10^3/uL (130-400) 12/15/24 07:36
Sodium 142 mmol/L (135-145) 12/15/24 07:36
Potassium 4.1 mmol/L (3.5-5.1) 12/15/24 07:36
Chloride 107 mmol/L (98-107) 12/15/24 07:36
Carbon Dioxide 26 mmol/L (22-30) 12/15/24 07:36
BUN 13 mg/dl (7-17) 12/15/24 07:36
Creatinine 0.9 mg/dL (0.6-1.0) 12/15/24 07:36
eGFR > 60.00 12/15/24 07:36
Glucose 92 mg/dl (70-99) 12/15/24 07:36
Calcium 9.2 mg/dl (8.4-10.2) 12/15/24 07:36
Rbi-L-Koergwhpbpt Pept 254 pg/ml 12/12/24 15:37
Albumin 4.1 g/dl (3.5-5.0) 12/13/24 08:50
Physical Exam
General no acute distress
HEENT no cephalic atraumatic extraocular muscle intact no scleral icterus no JVD neck supple
lungs clear to auscultation bilateral
heart regular S1-S2 positive
abdomen soft nontender positive bowel sounds
extremities no edema pulses present bilateral
Neurologically nonfocal alert and oriented x 3
Skin no lesions no abrasions no petechiae
Psych normal affect no bizarre behavior
Data Reviewed
-
Radiology: Image Personally Visualized and interpreted
CT Scan: Image Personally Visualized and interpreted
Ultrasound: Image Personally Visualized and interpreted
Assessment/Plan
-
69-year-old female past medical history of ocular migraines, pulmonary nodules, hypertension, nonobstructive CAD, provoked DVT, presenting for headache expressive aphasia. She presented with headache for the past 3 weeks with new onset of
expressive aphasia. CT head showed no acute intracranial abnormality, MRI brain with no stroke. She continues to have headaches associated with blood pressure around 180 systolic with a diastolic over 100. She been seen by oncology as well for
pulmonary nodule being worked up.
Renal consultation for uncontrolled hypertension. Patient has been hypertensive for many years though worsening in the last few weeks..
Home blood pressure medications included carvedilol, spironolactone and valsartan
Impression
Uncontrolled hypertension looking back at records in the hospital appears her blood pressures have been significantly elevated going back to 2022
Migraine headache
Pulmonary nodule
Vasculopath
Plan
CAT scan with IV contrast does not specify any vascular abnormalities
Echocardiogram 2022 normal ejection fraction
Appears she had a secondary workup for hypertension outpatient with aldosterone and renin on in 2022 but unable to see the results from [facility]
Will check Doppler ultrasound
Check plasma catecholamines, though this is unlikely
Slightly bradycardic so we will hold off on titration of beta-claudine
Will need to optimize her other medications in terms of titration of dose
Increase valsartan up to 320 mg with first dose tomorrow and will give 160 mg now
Nifedipine added earlier today 30 mg twice daily will continue that for now [will need to watch her response to this as she tells me she had leg swelling with amlodipine]
[2024-12-15] MEDS: DIOVAN 80 MG PO (17:10)
[2024-12-15] MEDS: LEXAPRO 10 MG PO (17:10)
[2024-12-15] MEDS: LOVENOX 40 MG SC (17:10)
[2024-12-15] MEDS: DIOVAN 160 MG PO (17:44)
[2024-12-16 01:39] LABS: Beta-2-Glycoprotein I Ab. IgG <10 SGU (<=20); Beta-2-Glycoprotein I Ab. IgM <10 SMU (<=20)
[2024-12-16 03:01] VITALS: BP 124/67
[2024-12-16 07:30] VITALS: BP 155/87
[2024-12-16 08:23] LABS: Hematocrit 44.4 % (37.0-47.0); Hemoglobin 14.5 g/dL (12.0-16.0); Mean Corp Hgb Conc. 32.7 g/dL (33.0-37.0); Mean Corpuscular Volume 88.8 fL (81.0-99.0); Platelet Count 204 10^3/uL (130-400); Red Cell Dist. Width 15.2 % (11.5-14.5)
[2024-12-16] MEDS: PLAVIX 75 MG PO (08:27)
[2024-12-16] MEDS: TYLENOL 1000 MG PO (08:27)
[2024-12-16] MEDS: CLARITIN 10 MG PO (08:27)
[2024-12-16] MEDS: DIOVAN 320 MG PO (08:27)
[2024-12-16] MEDS: ASPIR LOW (ENTERIC COATED) 81 MG PO (08:27)
[2024-12-16] MEDS: COREG 25 MG PO (08:28)
[2024-12-16] MEDS: TOPAMAX 50 MG PO (08:28)
[2024-12-16] MEDS: PROCARDIA XL (EXTENDED RELEASE) 30 MG PO (08:28)
[2024-12-16 08:35] VITALS: BP 155/87
[2024-12-16 09:00] LABS: Blood Urea Nitrogen 14 mg/dl (7-17); Calcium 9.1 mg/dl (8.4-10.2); Carbon Dioxide 25 mmol/L (22-30); Chloride 109 mmol/L (98-107); Estimated Creatinine Clearance 80 ml/min; Glucose 85 mg/dl (70-99); Potassium 4.3 mmol/L (3.5-5.1); Sodium 142 mmol/L (135-145); eGFR > 60.00
--- NOTE | 2024-12-16 09:53 | W.PN.HOSP.TC ---
Today's Communication/Plan
-
Discharge today
Assessment / Plan
Assessment / Plan
Physical Exam
General: Well Developed, Well Nourished and No Apparent Distress
HEENT: Normocephalic, Moist mucous membranes
Respiratory: Clear to Auscultation Bilaterally
Cardiac: S1/S2 and Regular Rhythm
GI: Soft, Non Tender, Non Distended and Normal Bowel Sounds
Musculoskeletal: No Cyanosis and No Edema
Skin: Warm. Dry.
Neuro: Nonfocal/grossly intact
Assessment/Plan
69-year-old female past medical history of ocular migraines, pulmonary nodules, hypertension, nonobstructive CAD, provoked DVT, presenting for headache expressive aphasia. She presented with headache for the past 3 weeks with new onset of
expressive aphasia this morning. She has had constant ocular migraine for the past 3 weeks associate with occasional blurry vision, floaters, flashing lights, pain behind the eyes, sensitivity to light and nausea. She has been stressed and
attributed headaches to stress. She was on migraine medication years ago but does not remember what the medication was. On 12/12/24 at 9 AM while talking to a customer she realized that she could not express herself. She knew what she wanted to
say but could not say the correct words. While she was trying to write something down she knew what to write but wrote the wrong thing. At 10:30 AM he went to the bank and was unable to express herself to the staff there. She was told to seek
medical care. She went to urgent care and was told to come to the emergency room. In urgent care she was starting to speak better. By time she got to emergency room her speech returned to normal and only has ongoing headache with visual changes.
She does not take any blood thinners or antiplatelet medications. She did take her blood pressure medications on 12/12/24 morning. She denied any facial droop, weakness, numbness or tingling. She was noted to have some nausea when she moves her eyes
too quickly and feels like there is pressure behind the eyes. Her sister had history of multiple brain aneurysms requiring multiple surgeries. 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
to discuss enlarged pulmonary nodule. She is a former smoker. She drinks alcohol occasionally.
# Expressive aphasia secondary to ocular migraine versus TIA
# History of ocular migraines
- No neurological symptoms currently
- CT head showed no acute intracranial abnormality
- CTA head and neck shows small outpouching measuring 2 mm along the mid extracranial right ICA which may represent small aneurysm, atherosclerotic calcification of the right carotid bifurcation 30% stenosis
- Tylenol, Toradol, Benadryl, Compazine for migraine
- MRI brain (w/o contrast) with no stroke
- Continue aspirin
- Neurology consulted
- I communicated (via [place] [employer] communication on 12/13/24) with on-call neurologist Dr. Solo Ulloa and he said: 'May continue both aspirin and Plavix until she sees a Neurologist. Can normalize blood pressure.'
- Neurology re-consulted given patient's reports of (more than 1 week duration of) depth perception difficulties, trouble with forgetfulness and slowed reaction time for more than 1 week, writing incorrect words -- neurologist
Ervin on 12/15/24 communicated to me that MRI with contrast is unremarkable and patient can be seen as an outpatient
- Follow-up with neurology in the clinic in about 2 weeks.
Pulmonary Nodules
New Right Parotid Gland Nodule
- Spoke with oncology and neurology, MRI brain with contrast showed no signifcant findings
- Oncology consulted for evaluation of possible cancer
- I communicated (on 12/15/24, via [place] [employer] communication) with Dr. Samuel who said that his office is taking care of it. Her appointment will be rescheduled towards the middle end of December 2024. No additional testing at
this time until Dr. Samuel sees her (as per Dr. Samuel)
- Follow up with ENT for parotid nodule with multiple ENT symptoms including sinusitis, hearing loss, bilateral jaw stiffness -- patient has appointment with Dr. Delgado in February 2025.
Essential hypertension
- Initially, antihypertensive medications were held for permissive hypertension, but I confirmed with neurologist on 12/13/24 evening, that antihypertensives can be resumed
- Patient's blood pressure remained very high as of 12/15/24 even after Nifedipine -- consulted nephrology, possible secondary hypertension
- Blood pressure now stable on Nifedipine, increased dose of Valsartan, Coreg and Aldactone
- Outpatient renal arteries ultrasound, and follow-up labs outpatient with Dr. Cheney's nephrology office
Nonobstructive CAD
History of provoked DVT from left ankle surgery and cast
- No longer on anticoagulation for this
Rheumatoid arthritis
Pulmonary nodules
Anxiety/depression
- Continue Lexapro
GERD
- Continue omeprazole
History of abnormal uterine bleeding status post hysterectomy
History of dysplastic colon polyp status post colectomy
Obesity
- Continue Topamax for weight loss
Full code
DVT prophylaxis�SCDs. Lovenox
Diet: Low sodium, cholesterol-lowering diet
More than 30 minutes spent in discharge including
Final examination of the patient
Summarizing hospital stay
Instructions for continuing care to all relevant caregivers
Preparation of discharge records, prescriptions, and referral forms
Total time spent (in minutes): 39
Anticipated Discharge: Today
Subjective/Interval History
-
Date of Service: December 16, 2024
Patient was seen and examined. She reported that she was feeling much better today, and she also said that she is looking forward to going home.
Objective Data
-
Labs:
Laboratory Results
12/16/24
06:59
WBC 5.1
Hgb 14.5
Hct 44.4
Plt Count 204
Sodium 142
Potassium 4.3
Chloride 109 H
Carbon Dioxide 25
BUN 14
Creatinine 0.9
Glucose 85
Calcium 9.1
Vital Signs:
Vital Signs
Temp Pulse Resp BP Pulse Ox
97.9 F 64 18 155/87 97
12/16/24 07:30 12/16/24 08:27 12/16/24 07:30 12/16/24 08:27 12/16/24 07:30
I&O
12/15/24 12/16/24 12/17/24
06:59 06:59 06:59
Intake Total 780 / 780
Balance 780 / 780
[2024-12-16 11:30] VITALS: BP 121/56
--- NOTE | 2024-12-16 12:07 | W.PN.ONC ---
Today's Communication / Plan
-
Heme/Onc will sign off, call for any questions
Impression
Impression
Expressive aphasia possibly secondary to TIA vs. ocular migraine
Ocular Migraines
Pulmonary Nodule: 0.4cm in right lower lobe , 0.85cm in right lower lobe pulmonary nodule adjacent to the dome of the right hemidiaphragm
1.0 cm soft tissue nodule within the right parotid gland
Uncontrolled Hypertension
Plan
Plan
Brain MRI shows no hyperacute, acute, or early subacute infarction, (-) mass, mild atrophy with sequelae of minimal chronic small vessel ischemic disease.
Beta-2-GPI IgG, IgM; anti-cardiolipin negative
--The pulmonary nodules seems stable from August 2024, the patient currently follow Dr. Samuel and will have a follow up for continued surveillance of the pulmonary nodules (appointment in 2 weeks). Defer to Dr. Samuel's discretion for decision on
appropriateness of PET scan as nodules are borderline in size. Biopsy may also be difficult due to location.
--Follow up with ENT for parotid nodule with multiple ENT symptoms including sinusitis, hearing loss, bilateral jaw stiffness. Patient has appointment with Dr. Delgado in February 2025.
--Dizziness likely related to blood pressure fluctuations-- appreciate nephrology and primary team
--Heme/Onco will sign off, message for any questions
Subjective/Objective
Subjective/Objective
Headache is feeling alot better. No difficulty in speaking and writing words. Showered for the first time since admission, and noted to be transiently dizzy while showering, along with heart racing.
Vital Signs:
Vital Signs
Temp Pulse Resp BP Pulse Ox
97.2 F 53 18 121/56 98
12/16/24 11:30 12/16/24 11:30 12/16/24 11:30 12/16/24 11:30 12/16/24 11:30
Lab Results:
Laboratory Data
WBC 5.1 10^3/uL (4.8-10.8) 12/16/24 06:59
Hgb 14.5 g/dL (12.0-16.0) 12/16/24 06:59
Plt Count 204 10^3/uL (130-400) 12/16/24 06:59
PT 14.1 Sec (11.4-14.6) 12/12/24 15:37
INR 1.05 12/12/24 15:37
APTT 26.7 Sec (23.4-35.0) 12/12/24 15:37
eGFR > 60.00 12/16/24 06:59
[2024-12-16 15:00] VITALS: BP 155/83
--- NOTE | 2024-12-16 16:35 | W.PN.NEPH.PH ---
Today's Communication / Plan
-
dc
Assessment/Plan
-
69-year-old female past medical history of ocular migraines, pulmonary nodules, hypertension, nonobstructive CAD, provoked DVT, presenting for headache expressive aphasia. She presented with headache for the past 3 weeks with new onset of
expressive aphasia. CT head showed no acute intracranial abnormality, MRI brain with no stroke. She continues to have headaches associated with blood pressure around 180 systolic with a diastolic over 100. She been seen by oncology as well for
pulmonary nodule being worked up.
Renal consultation for uncontrolled hypertension. Patient has been hypertensive for many years though worsening in the last few weeks..
Home blood pressure medications included carvedilol, spironolactone and valsartan
Impression
Uncontrolled hypertension looking back at records in the hospital appears her blood pressures have been significantly elevated going back to 2022
Migraine headache
Pulmonary nodule
Vasculopath
Plan
continue current meds for HTN
for dc
secondary w/u pending and can be requested by pts PCP/cardiology as OP
-
-
Date of Service: December 16, 2024
CC / HPI / ROS
-
Chief Complaint:
HTN
History of Present Illness:
BP stable and improved
no AVIITA
speech normal
Review of Systems:
no CP/SOB
Labs
-
Labs:
WBC 5.1 10^3/uL (4.8-10.8) 12/16/24 06:59
RBC 5.00 10^6/uL (4.20-5.40) 12/16/24 06:59
Hgb 14.5 g/dL (12.0-16.0) 12/16/24 06:59
Hct 44.4 % (37.0-47.0) 12/16/24 06:59
Plt Count 204 10^3/uL (130-400) 12/16/24 06:59
Sodium 142 mmol/L (135-145) 12/16/24 06:59
Potassium 4.3 mmol/L (3.5-5.1) 12/16/24 06:59
Chloride 109 mmol/L (98-107) H 12/16/24 06:59
Carbon Dioxide 25 mmol/L (22-30) 12/16/24 06:59
BUN 14 mg/dl (7-17) 12/16/24 06:59
Creatinine 0.9 mg/dL (0.6-1.0) 12/16/24 06:59
eGFR > 60.00 12/16/24 06:59
Glucose 85 mg/dl (70-99) 12/16/24 06:59
Calcium 9.1 mg/dl (8.4-10.2) 12/16/24 06:59
Wzi-C-Qwuuvtdhxjv Pept 254 pg/ml 12/12/24 15:37
Albumin 4.1 g/dl (3.5-5.0) 12/13/24 08:50
Physical Exam
-
Vital Signs:
Vital Signs
Temp Pulse Resp BP Pulse Ox
97.2 F 53 18 121/56 98
12/16/24 11:30 12/16/24 11:30 12/16/24 11:30 12/16/24 11:30 12/16/24 11:30
Cardiovascular:: Regular rate and rhythm
Respiratory:: Bilateral: Coarse
Lung Excursion:: Normal
Abdomen:: Nontender and Soft
Bowel Sounds:: Normal
Extremity Edema:: None: Bilateral:
[2024-12-17 18:21] LABS: Anticoagulant Med Neutralizati Not Performed (Not Performed); Neutralized dRVTT Screen Ratio Not Performed (<=1.20); Prothrombin Time 14.0 s (12.0-15.5); dRVTT 1.1 Mix Ratio Not Performed (<=1.20); dRVTT Confirmation Ratio Not Performed (<=1.20); dRVTT Screen Ratio 0.87 (<=1.20)
== END 2024-12-16 18:12 | disposition home or self-care (01) | DRG 69 ==
LOC: 4 WEST ACU 19:26
PROVIDERS: Psychiatry & Neurology Neurology; ADMITTING PHYSICIAN Hospitalist; ATTENDING PHYSICIAN Hospitalist; CONSULT PHYSICIAN Internal Medicine Nephrology; CONSULT PHYSICIAN Psychiatry & Neurology Neurology; EMERGENCY PHYSICIAN Emergency Medicine; FAMILY PHYSICIAN Family Medicine
DX: G45.9 Transient cerebral ischemic attack, unspecified (principal); R47.01 Aphasia; G43.109 Migraine with aura, not intractable, without status migrainosus; R91.1 Solitary pulmonary nodule; Z87.891 Personal history of nicotine dependence; I10 Essential (primary) hypertension; I25.10 Atherosclerotic heart disease of native coronary artery without angina pectoris; Z90.710 Acquired absence of both cervix and uterus; Z88.5 Allergy status to narcotic agent; Z96.649 Presence of unspecified artificial hip joint; Z91.040 Latex allergy status; Z88.2 Allergy status to sulfonamides; Z79.82 Long term (current) use of aspirin; Z86.0100 Personal history of colon polyps, unspecified; M06.9 Rheumatoid arthritis, unspecified; F32.A Depression, unspecified; F41.9 Anxiety disorder, unspecified; K21.9 Gastro-esophageal reflux disease without esophagitis; Z90.49 Acquired absence of other specified parts of digestive tract; E66.9 Obesity, unspecified; Z68.39 Body mass index [BMI] 39.0-39.9, adult; E78.00 Pure hypercholesterolemia, unspecified; H91.90 Unspecified hearing loss, unspecified ear; J42 Unspecified chronic bronchitis; M34.9 Systemic sclerosis, unspecified; R29.700 NIHSS score 0; Z86.718 Personal history of other venous thrombosis and embolism; Z79.899 Other long term (current) drug therapy
CPT/HCPCS: 0042T; 70450; 70496; 70498; 70551; 70553; 80048; 80053; 82088; 82384; 82607; 82746; 83835; 83880; 84244; 84443; 84484; 85025; 85027; 85610; 85613; 85652; 85730; 86140; 86146; 86147; 93005; 93975; 94760; 97166; 99285; A9575; Q9967

== ENCOUNTER → 2025-01-19 12:00 | Outpatient (REF) | payer MEDICARE, BC, SELFPAY | LOC: DHSLP 12:00 | PROVIDERS: ATTENDING PHYSICIAN Internal Medicine Critical Care Medicine; FAMILY PHYSICIAN Family Medicine | DX: G47.30 Sleep apnea, unspecified (principal); R06.83 Snoring | CPT/HCPCS: 95800 ==